=== PATIENT | male | born 1970 | race Caucasian/White ===

== ENCOUNTER 2018-12-15 07:04 | Emergency (ER) | payer MEDICAID, SELFPAY ==
[2018-12-15 07:06] VITALS: BP 139/78; PULSE 82; RESP 12; TEMP 36.9; O2SAT 98
--- NOTE | 2018-12-15 07:17 | W.ED.GENAD ---
Medical Decision Making <Mukesh Loomis DO - Last Filed: 12/15/18 14:52> This is a 48-year-old male with past medical history of surgery on his left ankle years ago for an injury, his chronic pain during the winter in his left ankle, he states this his pain is gotten slightly worse over the last few weeks, but he felt a change just today when he was dorsiflexing his foot. He came in for further evaluation. He denies any redness, fever or chills. He denies any significant trauma or hearing any loud pops. Physical exam demonstrates a benign-appearing ankle, no significant reproducible tenderness, patient is able to bear weight without significant difficulty. I suspect the patient has notable chronic arthritis secondary to the surgery, recommend continue Tylenol and Motrin on an outpatient basis. We will get an x-ray to rule out acute fracture. We will Place Lidoderm patch, and recommend follow-up with the orthopedic surgeon that did the surgery. We are pending x-ray results the case will be signed out to my colleague Dr. Louise. <Ally Louise MD - Last Filed: 12/15/18 13:35> Lance Eldridge is a 48-year-old man who presented to the emergency department with ankle pain and was initially seen by Dr. Loomis. Patient was signed out to me at time of shift change with ankle x-rays pending. I personally visualized and interpreted the x-ray in conjunction with radiology: LEFT ANKLE: Comparison is made with 12/06/11. There is again noted to be a screw and plate through the distal tibia and fibula. There is now a fracture of the screw within the tibial portion. There is also new lucency surrounding the screw,. likely reflecting loosening. No bony fractures are identified. There are degenerative changes at the anterior tibia. An os trigonum is incidentally noted. IMPRESSION: Fracture of the mortise screw. Abnormal lucency surrounding the screw likely representing loosening. I discussed patient presentation results with Dr. King of orthopedic surgery who was on-call, who recommended patient be discharged home in a walking boot with outpatient follow-up with orthopedics. Patient was placed on the Ortho list for follow-up. I had a lengthy discussion with the patient regarding return to emergency department precautions, and importance of outpatient follow-up with orthopedics. Patient verbalized understanding the plan and is amenable. HPI <Mukesh Loomis DO - Last Filed: 12/15/18 14:52> General Date/Time Provider Initiated Documentation: 12/15/18 07:10. HPI Narrative: This is a very pleasant 48-year-old male with past medical history of left ankle surgery secondary to an injury, with subsequent pins, who presents today for left ankle pain. He states that the ankle has been hurting him for the last few weeks, it is worse with the cold weather and movement. He states that this is pretty classic for him during the winter, however this morning when he got up he felt that there was an acute change in the left lateral aspect of his ankle. It occurred on dorsiflexion. He does admit to hearing some cracking regularly, but denies hearing any significant pop. He denies any numbness tingling or weakness. He denies any other complaints or modifying factors. He denies any redness, fever, chills, or warmth. No other complaints at this time. Related Data Home Medications Medication Instructions Recorded Confirmed bupropion HCl [Wellbutrin XL] 300 mg PO DAILY tab-cap 01/10/17 12/15/18 ranitidine HCl 300 mg PO HS #60 tab-cap 03/29/17 12/15/18 omeprazole 20 mg PO DAILY 03/01/18 12/15/18 lidocaine [Lidoderm] 1 patch TOPICAL Q24H #4 patch 12/15/18 Previous Rx's Medication Instructions Recorded lidocaine [Lidoderm] 1 patch TOPICAL Q24H #4 patch 12/15/18 Allergies Allergy/AdvReac Type Severity Reaction Status Date / Time No Known Allergies Allergy Unverified 12/15/18 07:10 General Stated Complaint: Orthopedic RONY: 4 Review of Systems <Mukesh Loomis DO - Last Filed: 12/15/18 14:52> Review of Systems All systems reviewed & are unremarkable except as noted in HPI and below PFSH <DO Ashley Lomax Last Filed: 12/15/18 14:52> Surgical History EGD - IV Sedation (01/22/17) Social History Smoking/Tobacco Use Status: Former Tobacco Use Drug use: Never Do you feel safe at home: Yes Do you feel safe in your relationship?: Yes Exam <Mukesh Loomis DO - Last Filed: 12/15/18 14:52> Narrative Exam Narrative: 1.Const: Well-nourished, Well-developed, appearing stated age 2.Eyes: PERRL, no conjunctival injection, and symmetrical lids. 3.ENT: Atraumatic external nose and ears. Moist MM. Neck: Symmetric, trachea midline, No thyromegaly. 4.CVS: +S1/S2, No murmurs or gallops. Peripheral pulses 2+ and equal in all extremities. Brisk capillary refill in all extremities. 5.RESP: Unlabored respiratory effort. Clear to auscultation bilaterally. No wheezes rales or rhonchi 6.GI: Soft, Nontender/Nondistended, No hepatosplenomegaly. No guarding or rebound. 7.MSK: Normocephalic/Atraumatic, Extremities w/o deformity or ttp No cyanosis or clubbing, Normal movement of all extremities. No significant deformity of the left ankle, no severe crepitus with movement. No redness, erythema or warmth. Subjective pain is located on the lateral aspect of the malleolus towards the calcaneus. However no significant reproducible tenderness. Patient is able to bear weight. No other significant abnormalities. 8.Skin: Warm, Dry. No rashes or lesions. 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 Sensation grossly intact, no focal neurologic deficits. 10.Psych: (AAO) x3. Appropriate mood and affect Course <Mukesh Csome Ebonie DO - Last Filed: 12/15/18 14:52> Vital Signs Temperature 36.9 C 12/15/18 07:06 Pulse 82 12/15/18 07:06 Respiratory Rate 12 12/15/18 07:06 Blood Pressure 139/78 12/15/18 07:06 Pulse Oximetry 98 12/15/18 07:06 Temperature 36.9 C 12/15/18 07:06 Temperature Source Temporal Artery Scan 12/15/18 07:06 Pulse 82 12/15/18 07:06 Respiratory Rate 12 12/15/18 07:06 Respiratory Effort Non-Labored 12/15/18 07:11 Blood Pressure 139/78 12/15/18 07:06 Blood Pressure Position Sitting 12/15/18 07:06 Pulse Oximetry 98 12/15/18 07:06 Oxygen Delivery Method Room Air 12/15/18 07:06 Oxygen Flow Rate 0 12/15/18 07:06 Pain Level 8 12/15/18 07:12 Sign Out <Mukesh Loomis DO - Last Filed: 12/15/18 14:52> Sign Out Data: Sign Out Comment: Pending x-ray results, likely to discharge home pending negative x-ray Last updated by Mukesh Loomis DO at 12/15/18 07:43
--- NOTE | 2018-12-15 07:26 | ED.GENADUL_ITS ---
Medical Decision Making <Mukesh Loomis DO - Last Filed: 12/15/18 14:52> This is a 48-year-old male with past medical history of surgery on his left ankle years ago for an injury, his chronic pain during the winter in his left ankle, he states this his pain is gotten slightly worse over the last few weeks, but he felt a change just today when he was dorsiflexing his foot. He came in for further evaluation. He denies any redness, fever or chills. He denies any significant trauma or hearing any loud pops. Physical exam demonstrates a benign-appearing ankle, no significant reproducible tenderness, patient is able to bear weight without significant difficulty. I suspect the patient has notable chronic arthritis secondary to the surgery, recommend continue Tylenol and Motrin on an outpatient basis. We will get an x-ray to rule out acute fracture. We will Place Lidoderm patch, and recommend follow-up with the orthopedic surgeon that did the surgery. We are pending x-ray results the case will be signed out to my colleague Dr. Louise. <Ally Louise MD - Last Filed: 12/15/18 13:35> Lance Eldridge is a 48-year-old man who presented to the emergency department with ankle pain and was initially seen by Dr. Loomis. Patient was signed out to me at time of shift change with ankle x-rays pending. I personally visualized and interpreted the x-ray in conjunction with radiology: LEFT ANKLE: Comparison is made with 12/06/11. There is again noted to be a screw and plate through the distal tibia and fibula. There is now a fracture of the screw within the tibial portion. There is also new lucency surrounding the screw,. likely reflecting loosening. No bony fractures are identified. There are degenerative changes at the anterior tibia. An os trigonum is incidentally noted. IMPRESSION: Fracture of the mortise screw. Abnormal lucency surrounding the screw likely representing loosening. I discussed patient presentation results with Dr. King of orthopedic surgery who was on-call, who recommended patient be discharged home in a walking boot w ith outpatient follow-up with orthopedics. Patient was placed on the Ortho list for follow-up. I had a lengthy discussion with the patient regarding return to emergency department precautions, and importance of outpatient follow-up with orthopedics. Patient verbalized understanding the plan and is amenable. HPI <Mukesh Loomis DO - Last Filed: 12/15/18 14:52> General Date/Time Provider Initiated Documentation: 12/15/18 07:10 . HPI Narrative: This is a very pleasant 48-year-old male with past medical history of left ankle surgery secondary to an injury, with subsequent pins, who presents today for left ankle pain. He states that the ankle has been hurting him for the last few weeks, it is worse with the cold weather and movement. He states that this is pretty classic for him during the winter, however this morning when he got up he felt that there was an acute change in the left lateral aspect of his ankle. It occurred on dorsiflexion. He does admit to hearing some cracking regularly, but denies hearing any significant pop. He denies any numbness tingling or weakness. He denies any other complaints or modifying factors. He denies any redness, fever, chills, or warmth. No other complaints at this time. Related Data Home Medications Medication Instructions Recorded Confirmed bupropion HCl [Wellbutrin XL] 300 mg PO DAILY tab-cap 01/10/17 12/15/18 ranitidine HCl 300 mg PO HS #60 tab-cap 03/29/17 12/15/18 omeprazole 20 mg PO DAILY 03/01/18 12/15/18 lidocaine [Lidoderm] 1 patch TOPICAL Q24H #4 patch 12/15/18 Previous Rx's Medication Instructions Recorded lidocaine [Lidoderm] 1 patch TOPICAL Q24H #4 patch 12/15/18 Allergies Allergy/AdvReac Type Severity Reaction Status Date / Time No Known Allergies Allergy Unverified 12/15/18 07:10 General Stated Complaint: Orthopedic RONY: 4 Review of Systems <Mukesh Loomis DO - Last Filed: 12/15/18 14:52> Review of Systems All systems reviewed & are unremarkable except as noted in HPI and below PFSH <Mukesh Loomis DO - Last Filed: 12/15/18 14:52> Surgical History EGD - IV Sedation (01/22/17) Social History Smoking/Tobacco Use Status: Former Tobacco Use Drug use: Never Do you feel safe at home: Yes Do you feel safe in your relationship?: Yes Exam <Mukesh Loomis DO - Last Filed: 12/15/18 14:52> Narrative Exam Narrative: 1.Const: Well-nourished, Well-developed, appearing stated age 2.Eyes: PERRL, no conjunctival injection, and symmetrical lids. 3.ENT: Atraumatic external nose and ears. Moist MM. Neck: Symmetric, trachea midline, No thyromegaly. 4.CVS: +S1/S2, No murmurs or gallops. Peripheral pulses 2+ and equal in all extremities. Brisk capillary refill in all extremities. 5.RESP: Unlabored respiratory effort. Clear to auscultation bilaterally. No wheezes rales or rhonchi 6.GI: Soft, Nontender/Nondistended, No hepatosplenomegaly. No guarding or rebound. 7.MSK: Normocephalic/Atraumatic, Extremities w/o deformity or ttp No cyanosis or clubbing, Normal movement of all extremities. No significant deformity of the left ankle, no severe crepitus with movement. No redness, erythema or warmth. Subjective pain is located on the lateral aspect of the malleolus towards the calcaneus. However no significant reproducible tenderness. Patient is able to bear weight. No other significant abnormalities. 8.Skin: Warm, Dry. No rashes or lesions. 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 Sensation grossly intact, no focal neurologic deficits. 10.Psych: (AAO) x3. Appropriate mood and affect Course <Mukesh Loomis DO - Last Filed: 12/15/18 14:52> Vital Signs Temperature 36.9 C 12/15/18 07:06 Pulse 82 12/15/18 07:06 Respiratory Rate 12 12/15/18 07:06 Blood Pressure 139/78 12/15/18 07:06 Pulse Oximetry 98 12/15/18 07:06 Temperature 36.9 C 12/15/18 07:06 Temperature Source Temporal Artery Scan 12/15/18 07:06 Pulse 82 12/15/18 07:06 Respiratory Rate 12 12/15/18 07:06 Respiratory Effort Non-Labored 12/15/18 07:11 Blood Pressure 139/78 12/15/18 07:06 Blood Pressure Position Sitting 12/15/18 07:06 Pulse Oximetry 98 12/15/18 07:06 Oxygen Delivery Method Room Air 12/15/18 07:06 Oxygen Flow Rate 0 12/15/18 07:06 Pain Level 8 12/15/18 07:12 Sign Out <Mukesh Loomis DO - Last Filed: 12/15/18 14:52> Sign Out Data: Sign Out Comment: Pending x-ray results, likely to discharge home pending negative x-ray Last updated by Mukesh Loomis DO at 12/15/18 07:43
[2018-12-15] MEDS: Lidocaine 5% Patch 1 PATCH TP (07:32)
== END 2018-12-15 10:25 | disposition home or self-care (01) ==
PROVIDERS: Emergency Provider Student in an Organized Health Care Education/Training Program; PCP Specialist/Technologist Athletic Trainer
DX: M25.572 Pain in left ankle and joints of left foot (principal); G89.29 Other chronic pain; T84.116A Breakdown (mechanical) of internal fixation device of bone of right lower leg, initial encounter
CPT/HCPCS: 29515; 99283; 73610; L4361

== ENCOUNTER 2018-12-31 12:06 | Day surgery (SDC) | payer MEDICAID, SELFPAY ==
[2018-12-31 12:31] VITALS: BP 131/85; PULSE 82; RESP 18; TEMP 36.5; O2SAT 97
[2018-12-31 12:44] VITALS: BP 131/85; PULSE 82; RESP 18; TEMP 36.5; O2SAT 97
--- NOTE | 2018-12-31 13:33 | DI.RAD_ITS ---
SYMPTOMS/DIAGNOSIS: REMOVAL OF BROKEN LEFT SCREW LEFT FOOT IN THE OR: Fluoroscopy Time: 3.8 sec Fluoroscopy was utilized by Dr. King during the removal of a broken screw in the left ankle. Please refer to the procedure report for complete details.
--- NOTE | 2018-12-31 14:55 | W.PM.DSUDISC ---
Discharge Plan Disposition Patient Disposition: HOME Condition: Good Discharge Details Reason For Visit: Remove broken screw L ankle Attending Provider: Tyron King Primary Care Provider: Cristhian Hubbard Home Meds and New Rx's Prescriptions: Continued bupropion HCl [Wellbutrin XL] 150 MG tablet extended release 24 hr 300 mg PO DAILY RF: 0 ranitidine HCl 300 MG capsule 300 mg PO HS Qty: 60 RF: 0 omeprazole 20 MG tablet,delayed release (DR/EC) 40 mg PO DAILY RF: 0 lidocaine [Lidoderm] 1 PATCH patch 1 patch Topical Q24H Qty: 4 RF: 0 Vicks NyQuil Severe Cold-Flu 6.25-5-10-325 mg Tablet 1 tab PO PRN PRNRF: 0 Discharge Instructions Additional Instructions: Elevate L ankle if L foot swells. Walk and put as much weight on L foot as your discomfort allows. May remove dressings, shower, and get incision wet after 48 hours. Leave incision uncovered when it is dry and sealed. Follow up with in 2 weeks. Take ibuprofen 800 mg every 6 hours, if needed for pain. Activity:: Activity as Tolerated Remove Dressings/Wound Care:: 48 hours Shower/Bathe:: 48 hours Diet:: As Tolerated Discharge Orders Discharge Orders: Discharge Order (Routine); Ordered 12/31/18 Ordered By: Tyron King DS: Diagnosis Discharge Diagnosis (1) Painful orthopaedic hardware: Status: Chronic
--- NOTE | 2019-01-01 07:30 | ROE_ITS ---
REPORT OF OPERATIVE PROCEDURE DATE OF PROCEDURE December 31, 2018 PREOPERATIVE DIAGNOSIS Painful broken syndesmotic screw, left ankle. POSTOPERATIVE DIAGNOSIS Painful broken syndesmotic screw, left ankle. PROCEDURE Removal of broken screw, left ankle. ANESTHESIA Local infiltration, 1% Xylocaine solution and 0.5% Marcaine with epinephrine solution. SURGEON Tyron King M.D. INDICATIONS This is a 40-year-old white male who had previously had a widened ankle mortise treated with a syndes motic screw over three years ago. He had had no particular problems until a few months ago when he no anand the sudden onset of pain around his left ankle. X-rays revealed that the syndesmotic screw had br oken within the confines of the distal tibia. In addition, there was evidence that the screw had been loose due to re-absorption of bone around the screw. Removal of the broken portion of the screw was recommended. I explained to the patient that I would not have to remove the medial portion of the scr ew that was well encased in the tibia. The risks and complications of the procedure were explained to the patient in detail preoperatively. DESCRIPTION OF PROCEDURE The patient was taken to the Operating Room on 12/31/2018. He was placed supine on the operating tabl e. The left foot and ankle were prepped and draped free and usual sterile fashion. The left ankle was elevated on soft goods. With the help of C-arm image intensification, I was able t o localize the screw on the distal fibula. I then made an incision longitudinal, incorporating some o f the previous scar down to bone. The screw head was not visible, it was covered with bone and soft t issue. I proceeded to use dental pic curettes and a small rongeur to expose the screw head. The screw head was obviously loose in the fibula. It was a large fragment screw, and I backed it out with the Hex screwdriver. I then irrigated the screw hole and the small incision with Betadine saline solutio n. The skin had been anesthetized with 1% Xylocaine solution down to periosteum and at the conclusion of the procedure, I infiltrated the wound edges including the periosteum of the fibula with 0.5% Mar alice with epinephrine solution. The skin edges were approximated with a few interrupted #4-0 Nylon s utures. The wound was dressed with Xeroform gauze, sterile gauze 4x4s, and wrapped with a 3-inch Adryan bandage. The patient tolerated the procedure well. He was discharged from the Day Surgery Unit in good conditi on. The patient was given instructions on discharge to be weightbearing as tolerated to the left foot. He is told to elevate his foot whenever it is sore or if the foot swells. He may remove his dressing, s hower and get his incision wet after 48 hours. He can leave the incision uncovered when it is dry and sealed. He should followup with Dr. King in two weeks.
== END 2018-12-31 15:32 | disposition home or self-care (01) ==
PROVIDERS: PCP Specialist/Technologist Athletic Trainer; Visit Provider Orthopaedic Surgery
PROC: (CPT 20680; principal; 2018-12-31 14:00)
DX: T84.84XA Pain due to internal orthopedic prosthetic devices, implants and grafts, initial encounter (principal); M25.572 Pain in left ankle and joints of left foot
CPT/HCPCS: 20680; 73620

== ENCOUNTER 2019-03-06 22:12 | Emergency (ER) | payer MEDICAID, SELFPAY ==
[2019-03-06 22:16] VITALS: BP 152/99; PULSE 87; RESP 18; TEMP 36.5; O2SAT 95
--- NOTE | 2019-03-06 22:26 | W.ED.GENAD ---
Discharge Plan Disposition Patient Disposition: HOME Condition: Improving Discharge Details Chief Complaint: DentalOral Clinical Impression: Odontalgia Primary Care Provider: Cristhian Hubbard ED Provider: Tyron Navarro Home Meds and New Rx's Prescriptions: New penicillin V potassium 500 mg tablet 500 mg PO TID 10 Days Qty: 30 RF: 0 Continued meloxicam [Mobic] 15 mg tablet 15 mg PO DAILY RF: 0 bupropion HCl [Wellbutrin XL] 150 MG tablet extended release 24 hr 300 mg PO DAILY RF: 0 ranitidine HCl 300 MG capsule 300 mg PO HS Qty: 60 RF: 0 omeprazole 20 MG tablet,delayed release (DR/EC) 40 mg PO DAILY RF: 0 lidocaine [Lidoderm] 1 PATCH patch 1 patch Topical Q24H Qty: 4 RF: 0 Discharge Instructions Instructions: Toothache (ED) Additional Instructions: Follow-up with dentistry on Saturday as planned. Warm, salt water gargles to aid in speed of healing. Take penicillin as prescribed. Continue ibuprofen 600 to 800 mg every 8 hours, with food for pain. May also use Tylenol 650 to 975 mg every 6 hours. May use the provided hydrocodone if needed for severe pain at bedtime. This does contain Tylenol it should not be used with additional Tylenol. Medical Decision Making 49-year-old male with generally poor dentition, multiple previous extractions, now with numerous dental caries and right maxillary odontalgia and developing apical infection. He has pre-standing follow-up with dentistry for Saturday. I will place him on a course of penicillin. He declined regional anesthesia, he will be given 2 Vicodin for home use for severe pain. He is stable and appropriate for discharge with follow-up with dentistry as planned HPI General Mode of arrival: ambulatory. Date/Time Provider Initiated Documentation: 03/06/19 22:12. Limitations to Documentation: no limitations. Information obtained by: patient. History of Present Illness 49 year old M presents to the emergency department with the chief complaint of Dental pain, right upper, described as moderate, Quality is described as aching, dull and constant, and is localized to the face. Patient reports no radiation. Patient started experiencing this day(s) and it has been constant. No relieving factors improve symptom(s), No exacerbating factors reported . Patient notes denies fever/chills. Patient did receive the following treatments prior to arrival, NSAID Related Data Home Medications Medication Instructions Recorded Confirmed bupropion HCl [Wellbutrin XL] 300 mg PO DAILY tab-cap 01/10/17 03/06/19 ranitidine HCl 300 mg PO HS #60 tab-cap 03/29/17 03/06/19 omeprazole 40 mg PO DAILY 03/01/18 03/06/19 lidocaine [Lidoderm] 1 patch TOPICAL Q24H #4 patch 12/15/18 03/06/19 meloxicam 15 mg tablet 15 mg PO DAILY 01/14/19 03/06/19 penicillin V potassium 500 mg PO TID 10 Days #30 tab 03/06/19 Previous Rx's Medication Instructions Recorded lidocaine [Lidoderm] 1 patch TOPICAL Q24H #4 patch 12/15/18 penicillin V potassium 500 mg PO TID 10 Days #30 tab 03/06/19 Allergies Allergy/AdvReac Type Severity Reaction Status Date / Time No Known Allergies Allergy Unverified 03/06/19 22:18 General Stated Complaint: DentalOral RONY: 4 Review of Systems Review of Systems No drooling, no change to voice. Mild right face swelling. Eating and drinking normally. Follow-up with dentistry on Saturday. 6 systems reviewed and otherwise neg [facility] Surgical History EGD - IV Sedation (01/22/17) Social History Smoking/Tobacco Use Status: Current-Occasional Tobacco Type: cigarettes Alcohol Intake: current Alcohol Intake frequency: holidays/special occasions only Drug use: Never Do you feel safe at home: Yes Do you feel safe in your relationship?: Yes Exam Narrative Exam Narrative: GEN: awake, alert, oriented 3. Pleasant, well groomed, interactive. HEAD: Normocephalic, atraumatic ENT: Mucous membranes moist, oropharynx with numerous dental caries and partially edentulous. Tender right maxillary with no fluctuance EYES: PERRL, EOMI NECK: Full ROM, no BAYLEE, no menigismus CHEST/RESP: Nontender, clear to auscultation bilateral, no wheeze/rhonchi/rales CARDIOVASCULAR: RRR, no murmur, rub qamar. 2+ Rad pulse bilateral Neuro: Grossly normal neurologic exam, conversant, interactive. Psych: Speech fluent, thoughts congruent, affect normal Course Vital Signs Temperature 36.5 C 03/06/19 22:16 Pulse 87 03/06/19 22:16 Respiratory Rate 18 03/06/19 22:16 Blood Pressure 152/99 H 03/06/19 22:16 Pulse Oximetry 95 03/06/19 22:16 Temperature 36.5 C 03/06/19 22:16 Temperature Source Skin 03/06/19 22:16 Pulse 87 03/06/19 22:16 Respiratory Rate 18 03/06/19 22:16 Respiratory Effort Non-Labored 03/06/19 22:18 Blood Pressure 152/99 H 03/06/19 22:16 Blood Pressure Position Sitting 03/06/19 22:16 Pulse Oximetry 95 03/06/19 22:16 Oxygen Delivery Method Room Air 03/06/19 22:16 Oxygen Flow Rate 0 03/06/19 22:16 Pain Level 9 03/06/19 22:20
--- NOTE | 2019-03-06 22:29 | ED.GENADUL_ITS ---
Discharge Plan Disposition Patient Disposition: HOME Condition: Improving Discharge Details Chief Complaint: DentalOral Clinical Impression: Odontalgia Primary Care Provider: Cristhian Hubbard ED Provider: Tyron Navarro Home Meds and New Rx's Prescriptions: New penicillin V potassium 500 mg tablet 500 mg PO TID 10 Days Qty: 30 RF: 0 Continued meloxicam [Mobic] 15 mg tablet 15 mg PO DAILY RF: 0 bupropion HCl [Wellbutrin XL] 150 MG tablet extended release 24 hr 300 mg PO DAILY RF: 0 ranitidine HCl 300 MG capsule 300 mg PO HS Qty: 60 RF: 0 omeprazole 20 MG tablet,delayed release (DR/EC) 40 mg PO DAILY RF: 0 lidocaine [Lidoderm] 1 PATCH patch 1 patch Topical Q24H Qty: 4 RF: 0 Discharge Instructions Instructions: Toothache (ED) Additional Instructions: Follow-up with dentistry on Saturday as planned. Warm, salt water gargles to aid in speed of healing. Take penicillin as prescribed. Continue ibuprofen 600 to 800 mg every 8 hours, with food for pain. May also use Tylenol 650 to 975 mg every 6 hours. May use the provided hydrocodone if needed for severe pain at bedtime. This does contain Tylenol it should not be used with additional Tylenol. Medical Decision Making 49-year-old male with generally poor dentition, multiple previous extractions, now with numerous dental caries and right maxillary odontalgia and developing apical infection. He has pre-standing follow-up with dentistry for Saturday. I will place him on a course of penicillin. He declined regional anesthesia, he will be given 2 Vicodin for home use for severe pain. He is stable and appropriate for discharge with follow-up with dentistry as planned HPI General Mode of arrival: ambulatory . Date/Time Provider Initiated Documentation: 03/06/19 22:12 . Limitations to Documentation: no limitations . Information obtained by: patient . History of Present Illness 49 year old M presents to the emergency department with the chief complaint of Dental pain, right upper, described as moderate, Quality is described as aching, dull and constant, and is localized to the face. Patient reports no radiation. Patient started experiencing this day(s) and it has been constant. No relieving factors improve symptom(s), No exacerbating factors reported . Patient notes denies fever/chills. Patient did receive the following treatments prior to arrival, NSAID Related Data Home Medications Medication Instructions Recorded Confirmed bupropion HCl [Wellbutrin XL] 300 mg PO DAILY tab-cap 01/10/17 03/06/19 ranitidine HCl 300 mg PO HS #60 tab-cap 03/29/17 03/06/19 omeprazole 40 mg PO DAILY 03/01/18 03/06/19 lidocaine [Lidoderm] 1 patch TOPICAL Q24H #4 patch 12/15/18 03/06/19 meloxicam 15 mg tablet 15 mg PO DAILY 01/14/19 03/06/19 penicillin V potassium 500 mg PO TID 10 Days #30 tab 03/06/19 Previous Rx's Medication Instructions Recorded lidocaine [Lidoderm] 1 patch TOPICAL Q24H #4 patch 12/15/18 penicillin V potassium 500 mg PO TID 10 Days #30 tab 03/06/19 Allergies Allergy/AdvReac Type Severity Reaction Status Date / Time No Known Allergies Allergy Unverified 03/06/19 22:18 General Stated Complaint: DentalOral RONY: 4 Review of Systems Review of Systems No drooling, no change to voice. Mild right face swelling. Eating and drinking normally. Follow-up with dentistry on Saturday. 6 systems reviewed and otherwise neg [facility] Surgical History EGD - IV Sedation (01/22/17) Social History Smoking/Tobacco Use Status: Current-Occasional Tobacco Type: cigarettes Alcohol Intake: current Alcohol Intake frequency: holidays/special occasions only Drug use: Never Do you feel safe at home: Yes Do you feel safe in your relationship?: Yes Exam Narrative Exam Narrative: GEN: awake, alert, oriented 3. Pleasant, well groomed, interactive. HEAD: Normocephalic, atraumatic ENT: Mucous membranes moist, oropharynx with numerous dental caries and partially edentulous. Tender right maxillary with no fluctuance EYES: PERRL, EOMI NECK: Full ROM, no BAYLEE, no menigismus CHEST/RESP: Nontender, clear to auscultation bilateral, no wheeze/rhonchi/rales CARDIOVASCULAR: RRR, no murmur, rub qamar. 2+ Rad pulse bilateral Neuro: Grossly normal neurologic exam, conversant, interactive. Psych: Speech fluent, thoughts congruent, affect normal Course Vital Signs Temperature 36.5 C 03/06/19 22:16 Pulse 87 03/06/19 22:16 Respiratory Rate 18 03/06/19 22:16 Blood Pressure 152/99 H 03/06/19 22:16 Pulse Oximetry 95 03/06/19 22:16 Temperature 36.5 C 03/06/19 22:16 Temperature Source Skin 03/06/19 22:16 Pulse 87 03/06/19 22:16 Respiratory Rate 18 03/06/19 22:16 Respiratory Effort Non-Labored 03/06/19 22:18 Blood Pressure 152/99 H 03/06/19 22:16 Blood Pressure Position Sitting 03/06/19 22:16 Pulse Oximetry 95 03/06/19 22:16 Oxygen Delivery Method Room Air 03/06/19 22:16 Oxygen Flow Rate 0 03/06/19 22:16 Pain Level 9 03/06/19 22:20
[2019-03-06] MEDS: HYDROcodone 5/Acetaminophen 325 TAB PO (22:35)
[2019-03-06] MEDS: Penicillin V POTASSIUM 500 MG TAB PO (22:35)
== END 2019-03-06 22:38 | disposition home or self-care (01) ==
PROVIDERS: Emergency Provider Emergency Medicine; PCP Specialist/Technologist Athletic Trainer
DX: K08.89 Other specified disorders of teeth and supporting structures (principal); K02.9 Dental caries, unspecified
CPT/HCPCS: 99283

== ENCOUNTER 2019-03-07 06:11 | Emergency (ER) | payer MEDICAID, SELFPAY ==
[2019-03-07 06:14] VITALS: BP 154/94; PULSE 98; RESP 18; TEMP 36.6; O2SAT 96
--- NOTE | 2019-03-07 06:34 | ED.GENADUL_ITS ---
Discharge Plan Disposition Patient Disposition: HOME Discharge Details Chief Complaint: DentalOral Clinical Impression: Dental abscess Primary Care Provider: Cristhian Hubbard ED Provider: Venu Louise Home Meds and New Rx's Prescriptions: New amoxicillin-pot clavulanate [Augmentin] 875-125 mg tablet 1 tab PO BID Qty: 14 RF: 0 Continued meloxicam [Mobic] 15 mg tablet 15 mg PO DAILY RF: 0 bupropion HCl [Wellbutrin XL] 150 MG tablet extended release 24 hr 300 mg PO DAILY RF: 0 ranitidine HCl 300 MG capsule 300 mg PO HS Qty: 60 RF: 0 omeprazole 20 MG tablet,delayed release (DR/EC) 40 mg PO DAILY RF: 0 Discontinued penicillin V potassium 500 mg tablet 500 mg PO TID 10 Days Qty: 30 RF: 0 Discharge Instructions Instructions: Dental Abscess (ED) Additional Instructions: Please contact your primary care physician to arrange follow-up. Be sure to discuss smoking cessation Stop taking penicillin. Start taking Augmentin. Please follow-up with your dentist on Saturday. Return to the ER for any worsening or new concerning symptoms. Referrals: Cristhian Hubbard [Primary Care Provider] - Discharge Data Discharge Date/Time-TO BE ENTERED AT DEPARTURE: 03/07/19 09:40 Medical Decision Making <Dusty Mcelroy MD - Last Filed: 03/11/19 22:37> Patient with small gingival abscess that will need to be drained. However, more concerned of deeper abscess given extensive facial swelling. IV established CBC and chemistry sent. IV clindamycin ordered. CT scan of the face ordered. Laboratory studies significant for white count of 14,000. Chemistries are fine. Scan is completed but not read. Care turned over to Dr. Louise. <Venu Louise MD - Last Filed: 03/13/19 10:47> Medical Records 8:00 --care signed out by Dr. Mcelroy - please see his documentation regarding initial ED presentation and course. Plan at dischargeplan for follow-up CT and incise and drain abscess. I spoke with the patient about incision and drainage. Patient provided informed consent. --Small incision made to obvious right incisor periapical abscess. Abscess drained of purulent fluid without complication. 9:20 --CT interpreted by radiology: Periapical lucency in the right maxilla consistent with periapical abscess. There are adjacent inflammatory changes and bubble air. No definite drainable fluid collection. Findings consistent with significant infection. I reviewed results with the patient. Plan to stop PCN and start augmentin. Plan to have patient followup with dentist on Saturday. We discussed return to ED precautions. HPI <Dusty Mcelroy MD - Last Filed: 03/11/19 22:37> General Mode of arrival: ambulatory . Date/Time Provider Initiated Documentation: 03/07/19 06:31 . Limitations to Documentation: no limitations . Information obtained by: patient and old records reviewed . HPI Narrative: Patient was seen here last night for dental infection. He was started on penicillin. Overnight his face has become extensively swollen on the right side. He has no difficulty swallowing or breathing. He has no fever he is aware of. However, given the significant swelling to the face he came in for reevaluation. Related Data Home Medications Medication Instructions Recorded Confirmed bupropion HCl [Wellbutrin XL] 300 mg PO DAILY tab-cap 01/10/17 03/07/19 ranitidine HCl 300 mg PO HS #60 tab-cap 03/29/17 03/07/19 omeprazole 40 mg PO DAILY 03/01/18 03/07/19 meloxicam 15 mg tablet 15 mg PO DAILY 01/14/19 03/07/19 amoxicillin-pot clavulanate 1 tab PO BID #14 tab 03/07/19 [Augmentin] Previous Rx's Medication Instructions Recorded amoxicillin-pot clavulanate 1 tab PO BID #14 tab 03/07/19 [Augmentin] Allergies Allergy/AdvReac Type Severity Reaction Status Date / Time No Known Allergies Allergy Unverified 03/07/19 06:16 General Stated Complaint: DentalOral RONY: 3 Review of Systems <Dusty Mcelroy MD - Last Filed: 03/11/19 22:37> Review of Systems As documented in HPI otherwise negative as below. Const: no fever, chills, weakness Resp: no cough, SOB, pleuritic pain CV: no CP, diaphoresis, edema, syncope GI: no abdominal pain, nausea, vomiting, diarrhea Neuro: no headache, numbness, focal weakness, confusion PFSH <Dusty Mcelroy MD - Last Filed: 03/11/19 22:37> Medical History Depression (Chronic) GERD (gastroesophageal reflux disease) (Chronic) Surgical History S/P ORIF (open reduction internal fixation) fracture (Inactive) EGD - IV Sedation (Inactive 01/22/17) Social History Smoking/Tobacco Use Status: Current-Occasional Tobacco Type: cigarettes Alcohol Intake: current Alcohol Intake frequency: holidays/special occasions only Drug use: Never Do you feel safe at home: Yes Do you feel safe in your relationship?: Yes Exam <Dusty Mcelroy MD - Last Filed: 03/11/19 22:37> Narrative Exam Narrative: Vitals: Afebrile. Mild tachycardia and elevated blood pressure. Saturations normal. Const: WDWN male in NAD. HEENT: NC/AT. Significant right facial swelling with periorbital edema as well. Significant decay of teeth. Right upper canine completely decayed and broken. Small gingival abscess noted. Eyes: Normal conjunctiva and sclera. Neck: Supple. Trachea midline. Lungs: Normal respiratory effort. Neuro: A+O x 3. CN grossly in tact. Good strength and no focal deficit. Skin: Warm and dry without erythema. Course <Dusty Mcelroy MD - Last Filed: 03/11/19 22:37> Vital Signs Temperature 97.9 F 03/07/19 06:14 Pulse 98 H 03/07/19 06:14 Respiratory Rate 18 03/07/19 06:14 Blood Pressure 154/94 H 03/07/19 06:14 Pulse Oximetry 96 03/07/19 06:14 Temperature 97.9 F 03/07/19 06:14 Temperature Source Skin 03/07/19 06:14 Pulse 98 H 03/07/19 06:14 Respiratory Rate 18 03/07/19 06:14 Respiratory Effort Non-Labored 03/07/19 06:16 Blood Pressure 154/94 H 03/07/19 06:14 Blood Pressure Position Sitting 03/07/19 06:14 Pulse Oximetry 96 03/07/19 06:14 Oxygen Delivery Method Room Air 03/07/19 06:14 Oxygen Flow Rate 0 03/07/19 06:14 Pain Level 10 03/07/19 06:18 <Venu Louise MD - Last Filed: 03/13/19 10:47> Abscess I/D Site: Other (dental) Side (if applicable): Right Sedation/analgesia: None Local Anesthetic: Other Anesthetic (hurricane gel) Technique: Incised with #11 Blade Amount of fluid expressed (mL): 1 Packing used?: None Sign Out <Dusty Mcelroy MD - Last Filed: 03/11/19 22:37> Sign Out Data: Sign Out Comment: Patient pending face CT results; Dr. Louise to I&D abscess Last updated by Dusty Mcelroy MD at 03/07/19 08:29
--- NOTE | 2019-03-07 06:40 | DI.CT_ITS ---
SYMPTOM/DIAGNOSIS: DENTAL INFECTION WITH WORSE FACE SWELLING OVERNIGHT FACIAL CT: Post contrast exam was performed. There is an area of lucency in the right maxilla around the root of a tooth with an adjacent air bubble consistent with a periapical abscess. No additional areas of abscess are seen. The orbits are unremarkable. There is mild mucosal thickening of the right maxillary sinus. IMPRESSION: Extremely poor dentition. A periapical abscess is seen adjacent to the right maxillary bicuspid tooth.
[2019-03-07] MEDS: Ketorolac 15 MG/ML VIAL IVP (06:51)
[2019-03-07] MEDS: Normal Saline 1,000 ML 150 ML IV (06:51)
[2019-03-07 06:56] LABS: Abs Immature Grans 0.04 k/cumm (0.0-0.09); Absolute Lymphocyte Count 1.42 k/cumm (1.2-3.4); Basophils % 0.1; Eosinophils % 1.4; HCT 43.6 % (40.0-50.0); HGB 14.6 g/dL (13.5-17.5); Immature Grans % 0.3; Lymphocytes % 10.1; Mean Corp. HGB Concentration 33.5 g/dL (32.0-36.0); Mean Corpuscular Hemoglobin 30.2 pg (27.0-33.0); Mean Corpuscular Volume 90.1 fL (80-95); Mean Platelet Volume 10.5 fL (8.0-11.0); Monocytes % 7.1; Platelet Count 321 x1000/uL (130-400); RBC 4.84 m/cumm (4.50-6.00); RBC Distribution Width 13.6 % (11.8-14.1); White Blood Cell Count 14.07 k/cumm (4.4-10.8)
[2019-03-07 07:04] LABS: Absolute Basophil Count 0.01 k/cumm (0.0-0.2)
[2019-03-07 07:07] LABS: Anion Gap 7.5 mmol/L (3-11); BUN 21 mg/dL (7-18); CO2 25.5 mmol/L (21.0-32.0); CREATININE 1.11 mg/dL (0.70-1.30); Calcium 8.8 mg/dL (8.5-10.1); Chloride 103 mmol/L (98-107); Glucose 107 mg/dL (70-100); Potassium 3.7 mmol/L (3.5-5.1); Sodium 136 mmol/L (136-145)
[2019-03-07] MEDS: CLINDAMYCIN 600 MG/50 ML BAG 100 MG IVPB (07:13)
[2019-03-07] MEDS: Omnipaque 350 MG/ML 100 ML BTL IJ (07:37)
[2019-03-07] MEDS: Benzocaine 20% Gel 30 GM JAR MM (08:40)
[2019-03-07] MEDS: Amoxicillin 875/Clav. 125 TAB PO (08:44)
--- NOTE | 2019-03-07 09:01 | DI.VRAD_ITS ---
EXAM: CT Maxillofacial With Contrast EXAM DATE/TIME: 03/07/2019 7:39 AM CLINICAL HISTORY: 49 years old, male; Signs and symptoms; Other: Dental infection with worse face swelling overnight TECHNIQUE: Imaging protocol: Axial computed tomography images of the face with intravenous contrast. Coronal and sagittal reformatted images were created and reviewed. Radiation optimization: All CT scans at this facility use at least one of these dose optimization techniques: automated exposure control; mA and/or kV adjustment per patient size (includes targeted exams where dose is matched to clinical indication); or iterative reconstruction. Contrast material: OMNIPAUE 350; Contrast volume: 100 ml; Contrast route: IV; COMPARISON: No relevant prior studies available. FINDINGS: Orbits: No acute intraorbital abnormality. Globes are unremarkable. Sinuses: Mucosal thickening in the right maxillary sinus and ethmoid sinuses and frontal sinuses Bones/joints: No acute fracture. Dental: Periapical lucency in the right maxilla consistent with periapical abscess. There are adjacent inflammatory changes and bubble of air (2:144-153.). No definite drainable fluid collection. Findings consistent with significant infection. Soft tissues: Significant soft tissue swelling and inflammatory changes adjacent to the right maxilla IMPRESSION: Periapical lucency in the right maxilla consistent with periapical abscess. There are adjacent inflammatory changes and bubble of air (2:144-153.). No definite drainable fluid collection. Findings consistent with significant infection. Dictated and Authenticated by: Mal Gordon MD. Ordering:MUKUL Montano MD
[2019-03-07 09:37] VITALS: BP 129/80; PULSE 65; RESP 15; TEMP 36.4; O2SAT 98
[2019-03-07 09:40] VITALS: BP 129/80; PULSE 65; RESP 15; TEMP 36.4; O2SAT 98
== END 2019-03-07 09:40 | disposition home or self-care (01) ==
PROVIDERS: Emergency Medicine; Emergency Provider Student in an Organized Health Care Education/Training Program; PCP Specialist/Technologist Athletic Trainer
DX: K04.7 Periapical abscess without sinus (principal)
CPT/HCPCS: 10060; 36415; 80048; 96361; 96365; 96375; 99285; 70487; 85025; 99284; J1885; J3490

== ENCOUNTER 2019-11-20 23:45 | Emergency (ER) | payer MEDICAID, SELFPAY ==
[2019-11-20 23:54] VITALS: BP 154/88; PULSE 62; RESP 16; TEMP 36.7; O2SAT 98
[2019-11-21] VITALS (9 sets, daily range): BP systolic 137–147; BP diastolic 55–77; PULSE 58–82; RESP 12–19; O2SAT 93–97
--- NOTE | 2019-11-21 00:14 | ED.GENADUL_ITS ---
Discharge Plan Disposition Patient Disposition: HOME Condition: Good Discharge Details Chief Complaint: Abd Prob Clinical Impression: Gastroenteritis Primary Care Provider: Cristhian Hubbard ED Provider: Mukesh Loomis Home Meds and New Rx's Prescriptions: No Action bupropion HCl [Wellbutrin XL] 150 MG tablet extended release 24 hr 300 mg PO DAILY RF: 0 omeprazole 20 MG tablet,delayed release (DR/EC) 40 mg PO DAILY RF: 0 Discharge Instructions Instructions: Gastroenteritis (ED) Additional Instructions: At this time your CAT scan shows no significant life threatening concerning abnormalities. You do have notable gastroenteritis. Which is irritation and inflammation of your stomach and small intestines. I suspect this was from the sandwich that you are eating earlier today. Please stick with a bland diet of bread, rice, applesauce, bananas, and avoid any spicy foods or greasy foods. Please take Maalox as needed to help with any return of your symptoms. If you notice any worsening of your symptoms, or any new symptoms such as vomiting, diarrhea, fever, chills, shortness of breath, chest pain, numbness, weakness, or fainting , please return immediately to the emergency department for reevaluation. Please follow up with your primary care provider as soon as possible for reassessment and reevaluation. As always, it was a pleasure participating in your medical care today. Referrals: Cristhian Hubbard [Primary Care Provider] - Medical Decision Making This is a pleasant 49-year-old male who presents with mild epigastric and left mid abdominal pain. Symptoms have been present for the last 6 hours. Symptoms came on relatively suddenly. He denies any tearing or ripping sensation. He denies any chest pain or shortness of breath. No urinary symptoms. He denies history of kidney stones. He denies significant alcohol intake. Physical exam demonstrates mild reproducible epigastric left-sided abdominal tenderness. No evidence of an acute surgical abdomen. No pain at McBurney's point, negative Escudero sign. Differential is broad but includes mild pancreatitis, gastritis, less likely biliary colic. Urolithiasis is also on the differential. We will gently rehydrate, treat the patient's pain, CT scan reassess. 2 AM Urinalysis shows no evidence of infection or RBCs. Laboratory work-up notably benign, minimally elevated white count of 12, no significant bandemia, electrolytes normal, lipase normal, troponin and EKG unremarkable. Symptoms inconsistent with ACS. After Toradol and GI cocktail patient had complete resolution of his symptoms. CT scan shows no evidence of stone, obstruction, gallbladder pathology or appendicitis. No vascular abnormality. CT scan does show evidence of notable gastroenteritis though. Upon discussion of the patient's findings, he then brought up that he had a notably foul tasting sandw ich that he ate earlier today which she feels is likely the initial cause and onset of his symptoms. I feel that this correlates well with his symptomatology. Signs and symptoms at this time consistent with mild gastroenteritis. Patient able to tolerate p.o. well. Patient will be discharged home with close follow-up. Discussed red flags which to return, including the importance of a brat diet, Maalox as needed. I have extensively reviewed the treatment plan and discharge instructions with the patient and their family. I have addressed all patient concerns at this time. The patient and family was made aware of what symptoms to monitor for that would warrant a return to the emergency department. Discussed the plan with the patient and family, they demonstrate verbal understanding and agreement with our assessment and plan at this time. EKG 00: 38 Rate 52, intervals normal, sinus bradycardia, inverted T wave in V1, no significant ST elevations or depression, no evidence of STEMI. No evidence of Q waves. Questionable RBBB FINDINGS: Liver: Normal. No mass. Gallbladder and bile ducts: Normal. No calcified stones. No ductal dilation. Pancreas: Normal. No ductal dilation. Spleen: Normal. No splenomegaly. Adrenals: Normal. No mass. Kidneys and ureters: No hydronephrosis. No renal calculi. Renal enhancement is unremarkable bilaterally. No inflammatory renal features. Stomach and bowel: Minor dilatation of the duodenal sweep. Mild gastric edema. This could represent a gastroenteritis. No mechanical bowel obstruction. No colonic edema. Minor hiatal hernia. Appendix: No evidence of appendicitis. Normal appendix is seen on series 4, image 74. Intraperitoneal space: Unremarkable. No free air. No significant fluid collection. Vasculature: Unremarkable. No abdominal aortic aneurysm. Lymph nodes: Unremarkable. No enlarged lymph nodes. Bladder: Unremarkable as visualized. Reproductive: Unremarkable as visualized. Bones/joints: Unremarkable. No acute fracture. Soft tissues: Minor fat containing umbilical hernia without evidence of strangulation.. IMPRESSION: 1. Features suggesting gastroenteritis. 2. No renal calculi or hydronephrosis. 3. Normal appendix. Thank you for allowing us to participate in the care of your patient. Dictated and Authenticated by: Oscar Mendez MD 11/21/2019 2:01 AM Eastern Time ([place] & [place]) HPI General Date/Time Provider Initiated Documentation: 11/20/19 23:49 . HPI Narrative: This is a pleasant 49-year-old male who presents today for evaluation of abdominal pain. Past medical history is positive for GERD, but no other significant prior abdominal surgeries. Patient states that at 6:30 PM which was roughly 6 hours prior to arrival he developed left-sided epigastric and left mid abdominal pain. He has had no associated vomiting or diarrhea. He has eaten without significant difficulty. Pain radiates down his left flank. He denies any urinary symptoms. He denies any numbness tingling or weakness. He denies chest pain, chest tightness, shortness of breath, bandlike sensation around the chest. He denies any previous cardiac history. Patient has no other complaints at this time. No aggravating or relieving factors. Related Data Home Medications Medication Instructions Recorded Confirmed bupropion HCl [Wellbutrin XL] 300 mg PO DAILY tab-cap 01/10/17 11/21/19 omeprazole 40 mg PO DAILY 03/01/18 11/21/19 Allergies Allergy/AdvReac Type Severity Reaction Status Date / Time No Known Allergies Allergy Unverified 03/07/19 06:16 General Stated Complaint: Abd Prob RONY: 3 Review of Systems All systems reviewed & are unremarkable except as noted in HPI and below [facility] Social History Smoking/Tobacco Use Status: Former Tobacco Use Alcohol Intake: current Alcohol Intake frequency: holidays/special occasions only Drug use: Never Do you feel safe at home: Yes Do you feel safe in your relationship?: Yes Exam Narrative Exam Narrative: 1.Const: Well-nourished, Well-developed, appearing stated age 2.Eyes: PERRL, no conjunctival injection, and symmetrical lids. 3.ENT: Atraumatic external nose and ears. Moist MM. Neck: Symmetric, trachea midline, No thyromegaly. 4.CVS: +S1/S2, No murmurs or gallops. Peripheral pulses 2+ and equal in all extremities. Brisk capillary refill in all extremities. 5.RESP: Unlabored respiratory effort. Clear to auscultation bilaterally. No wheezes rales or rhonchi 6.GI: Soft,Nondistended, No hepatosplenomegaly. No guarding or rebound. Minimal pain in the epigastric left upper quadrant left mid quadrant. No guarding or rebound. No pain at McBurney's point, negative Escudero sign. No reproducible flank or CVA tenderness. Genital exam demonstrates nontender testicles, no evidence of testicular torsion. Abdominal exam demonstrates no evidence of an acute surgical abdomen. 7.MSK: Normocephalic/Atraumatic, Extremities w/o deformity or ttp No cyanosis or clubbing, Normal movement of all extremities 8.Skin: Warm, Dry. No rashes or lesions. 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 Sensation grossly intact, no focal neurologic deficits. 10.Psych: (AAO) x3. Appropriate mood and affect Course Vital Signs Vital signs: Vital Signs Temperature 36.7 C 11/20/19 23:54 Pulse 62 11/20/19 23:54 Respiratory Rate 16 11/20/19 23:54 Blood Pressure 154/88 H 11/20/19 23:54 Pulse Oximetry 98 11/20/19 23:54 Temperature 36.7 C 11/20/19 23:54 Pulse 62 11/20/19 23:54 Respiratory Rate 16 11/20/19 23:54 Respiratory Effort 11/20/19 23:54 Blood Pressure 154/88 H 11/20/19 23:54 Pulse Oximetry 98 11/20/19 23:54 Oxygen Delivery Method Room Air 11/20/19 23:54 Oxygen Flow Rate 0 11/20/19 23:54 Pain Level 9 11/20/19 23:54
[2019-11-21 00:38] LABS: Bilirubin Negative (Negative); Blood Negative (Negative); Clarity Clear (Clear); Glucose Negative (Negative); Ketones Negative (Negative); Leukocyte Esterase Negative (Negative); Nitrite Negative (Negative); Specific Gravity >= 1.030 (1.005-1.025); Urobilinogen 0.2 EU/dL (Up TO 0.2)
[2019-11-21 00:51] LABS: Abs Immature Grans 0.03 k/cumm (0.0-0.09); Absolute Basophil Count 0.03 k/cumm (0.0-0.2); Absolute Eosinophil Count 0.15 k/cumm (0.0-0.7); Absolute Lymphocyte Count 1.87 k/cumm (1.2-3.4); Absolute Monocyte Count 0.77 k/cumm (0.11-0.7); Basophils % 0.2; Eosinophils % 1.2; HCT 40.6 % (40.0-50.0); HGB 13.8 g/dL (13.5-17.5); Immature Grans % 0.2 %; Lactate 1.3 mmol/L (0.6-1.4); Lymphocytes % 14.8; Mean Corpuscular Hemoglobin 30.5 pg (27.0-33.0); Mean Corpuscular Volume 89.6 fL (80-95); Mean Platelet Volume 9.9 fL (8.0-11.0); Monocytes % 6.1; Neutrophils % 77.5; Platelet Count 350 x1000/uL (130-400); RBC 4.53 m/cumm (4.50-6.00); RBC Distribution Width 13.1 % (11.8-14.1); White Blood Cell Count 12.64 k/cumm (4.4-10.8)
[2019-11-21] MEDS: Normal Saline 1,000 ML 1000 ML IV (00:51)
[2019-11-21] MEDS: Ketorolac 15 MG/ML VIAL IVP (00:52)
[2019-11-21 01:09] LABS: ALT 37 U/L (16-63); AST 21 U/L (15-37); Albumin 3.7 g/dL (3.4-5.0); Alkaline Phosphatase 77 U/L (46-116); Anion Gap 7.4 mmol/L (3-11); BUN 17 mg/dL (7-18); Bilirubin, Total 0.2 mg/dL (0.2-1.0); CO2 26.6 mmol/L (21.0-32.0); CREATININE 1.29 mg/dL (0.70-1.30); Calcium 8.5 mg/dL (8.5-10.1); Chloride 104 mmol/L (98-107); Glucose 132 mg/dL (74-106); Lipase 72 U/L (73-393); Potassium 4.1 mmol/L (3.5-5.1); Sodium 138 mmol/L (136-145); Total Protein 7.1 g/dL (6.4-8.2)
[2019-11-21 01:10] LABS: Troponin I < 0.05 ng/Ml (<0.06)
--- NOTE | 2019-11-21 01:46 | DI.CT_ITS ---
EXAM: CT ABDOMEN AND PELVIS W CLINICAL HISTORY: EPIGASTRIC AND LEFT FLANK PAIN, EVAL FOR STONE TECHNIQUE: Post IV contrast. Without oral contrast. COMPARISON: ABD PELVIS WITH CONTRAST from 06/23/2015 FINDINGS: There is no evidence of hydronephrosis, ureteral or bladder calculi. Tiny renal calculi could be obsc ured by contrast material. There is no evidence of a renal or bladder mass. There is symmetric parenc hymal enhancement. There is no evidence of pyelonephritis. The prostate appears normal. The lung base s are clear. The liver shows mild fatty infiltration. The gallbladder, spleen, pancreas and adrenals are unremarkable. The appendix appears normal. There is a normal quantity of stool. No bowel wall thi ckening or dilatation is seen. There is no free air or free fluid. Aorta is normal in diameter. No cochran spicious bony abnormalities are seen. IMPRESSION: No evidence of urinary tract calculi, hydronephrosis or other acute abnormality.
[2019-11-21] MEDS: Omnipaque 350 MG/ML 100 ML BTL IJ (01:47)
[2019-11-21] MEDS: Normal Saline - Diluent 50 ML VIAL IV (01:48)
--- NOTE | 2019-11-21 02:01 | DI.VRAD_ITS ---
PROCEDURE INFORMATION: Exam: CT Abdomen And Pelvis With Contrast Exam date and time: 11/21/2019 12:09 AM Age: 49 years old Clinical indication: Other: Epigastric and left flank pain, eval for stone TECHNIQUE: Imaging protocol: Computed tomography of the abdomen and pelvis with intravenous contrast. Radiation optimization: All CT scans at this facility use at least one of these dose optimization techniques: automated exposure control; mA and/or kV adjustment per patient size (includes targeted exams where dose is matched to clinical indication); or iterative reconstruction. Contrast material: OMNIPAQUE 350; Contrast volume: 100 ml; Contrast route: IV; COMPARISON: CT ABD PELVIS WITH CONTRAST 06/23/2015 6:09 PM FINDINGS: Liver: Normal. No mass. Gallbladder and bile ducts: Normal. No calcified stones. No ductal dilation. Pancreas: Normal. No ductal dilation. Spleen: Normal. No splenomegaly. Adrenals: Normal. No mass. Kidneys and ureters: No hydronephrosis. No renal calculi. Renal enhancement is unremarkable bilaterally. No inflammatory renal features. Stomach and bowel: Minor dilatation of the duodenal sweep. Mild gastric edema. This could represent a gastroenteritis. No mechanical bowel obstruction. No colonic edema. Minor hiatal hernia. Appendix: No evidence of appendicitis. Normal appendix is seen on series 4, image 74. Intraperitoneal space: Unremarkable. No free air. No significant fluid collection. Vasculature: Unremarkable. No abdominal aortic aneurysm. Lymph nodes: Unremarkable. No enlarged lymph nodes. Bladder: Unremarkable as visualized. Reproductive: Unremarkable as visualized. Bones/joints: Unremarkable. No acute fracture. Soft tissues: Minor fat containing umbilical hernia without evidence of strangulation.. IMPRESSION: 1. Features suggesting gastroenteritis. 2. No renal calculi or hydronephrosis. 3. Normal appendix. Dictated and Authenticated by: Oscar Mendez MD. Ordering:BRENTON Mayorga MD
--- NOTE | 2019-11-21 02:12 | NUR.NOTE ---
Nursing Note: Dr. Loomis in to discuss test results with patient.
== END 2019-11-21 02:30 | disposition home or self-care (01) ==
PROVIDERS: Emergency Provider Student in an Organized Health Care Education/Training Program; PCP Specialist/Technologist Athletic Trainer
DX: K52.9 Noninfective gastroenteritis and colitis, unspecified (principal)
CPT/HCPCS: 80053; 83690; 93005; 96361; 96374; 99285; 74177; 81003; 83605; 84484; 85025; 93010; 99284; J1885; J3490

== ENCOUNTER 2020-04-01 10:28 | Outpatient (REF) | payer MEDICAID, SELFPAY ==
[2020-04-01 19:22] LABS: Calculated LDL 146 mg/dL (<100); Cholesterol 212 mg/dL (<200); HDL Cholesterol 38 mg/dL (40-60); Triglyceride 140 mg/dL (<150)
[2020-04-04 11:19] LABS: PSA, Screening 0.2 ng/mL (0.0-3.5)
== END 2020-04-01 10:48 ==
LOC: NCHCN 10:28
PROVIDERS: PCP Specialist/Technologist Athletic Trainer; Visit Provider Nurse Practitioner Family
DX: Z13.220 Encounter for screening for lipoid disorders (principal); Z12.5 Encounter for screening for malignant neoplasm of prostate
CPT/HCPCS: 80061; 84153

== ENCOUNTER 2020-09-02 03:33 | Outpatient (CLI) | payer MEDICAID, SELFPAY ==
[2020-09-04 16:47] LABS: COVID-19 RT-PCR Result NEGATIVE (Negative)
== END 2020-09-02 03:53 ==
PROVIDERS: PCP Specialist/Technologist Athletic Trainer; Visit Provider Surgery
DX: Z11.59 Encounter for screening for other viral diseases (principal); Z01.818 Encounter for other preprocedural examination
CPT/HCPCS: U0003

== ENCOUNTER 2020-09-06 09:41 | Day surgery (SDC) | payer MEDICAID, SELFPAY ==
[2020-09-06 10:02] VITALS: BP 129/93; PULSE 105; RESP 20; TEMP 36.5; O2SAT 97
[2020-09-06] MEDS: Lactated Ringers 1,000 ML 80 ML IV (10:35)
--- NOTE | 2020-09-06 10:44 | W.PM.DSUDISC ---
Discharge Plan Disposition Patient Disposition: HOME Condition: Good Discharge Details Reason For Visit: Screening Colonoscopy Attending Provider: Torrie Omer Primary Care Provider: Cristhian Hubbard Home Meds and New Rx's Prescriptions: Continued bupropion HCl [Wellbutrin XL] 150 MG tablet extended release 24 hr 300 mg PO DAILY RF: 0 Atrovent HFA 17 mcg/actuation HFA aerosol inhaler 2 puff inhalation Q8H RF: 0 albuterol sulfate [ProAir HFA] 90 mcg/actuation HFA aerosol inhaler 1 puff inhalation ONCE RF: 0 nicotine (polacrilex) [Nicorette] 4 mg lozenge 4 mg buccal Q2H PRNRF: 0 omeprazole 20 MG tablet,delayed release (DR/EC) 40 mg PO DAILY RF: 0 Discontinued polyethylene glycol 3350 17 gram/dose powder 238 g PO ONCE Qty: 238 RF: 0 bisacodyl [Dulcolax (bisacodyl)] 5 mg tablet,delayed release (DR/EC) 5 mg PO ONCE Qty: 4 RF: 0 Discharge Instructions Additional Instructions: Findings: Your colonoscopy was normal. Follow up: Plan for routine screening colonoscopy in 10 years or sooner if symptoms arise. Please call if you develop: fevers >101.5 Nausea or Vomiting Abdominal pain that is not transient DAY SURGERY UNIT POST COLONOSCOPY INSTRUCTIONS 1. Because there will be medication in your system for the next 24 hours, you may feel a little sleepy. Your coordination will be affected. Therefore: a. Do not drive or operate dangerous equipment for 24 hours. b. Do not drink alcohol beverages for 24 hours (not even beer). c. Plan to go home and rest for the day. 2. Generally there are no restrictions on your activity after a day or so has gone by, but you may feel a bit fatigued for a few days. 3 After you arrive home you may have a light meal and return to a normal diet as you can tolerate it without feeling sick to your stomach. 4. After surgery, you may feel pain or discomfort. This should be only transient, but if it persists please contact your doctor. 5. If there are any questions regarding the findings of your procedure, please feel free to contact your doctor. 6. If you are unable to contact your doctor with a problem, contact the hospital at [phone]. 7. Continue all your regular medications unless directed otherwise. I understand the above instructions and have no questions. Signature of Patient or Responsible Adult Escort Date/Time Name of Responsible Adult Escort Signature of Nurse Date/Time Activity:: Activity as Tolerated Diet:: As Tolerated Discharge Orders Discharge Orders: Discharge Order (Routine); Ordered 09/06/20 Ordered By: Torrie Omer DS: Diagnosis Discharge Diagnosis (1) Normal colonoscopy: Status: Acute
--- NOTE | 2020-09-06 10:45 | W.COLOREPORT ---
Date of service: 09/06/20 Time of Service: 11:24 Colonoscopy Report Date of procedure: 09/06/20 Pre-op diagnosis general: Screening Post-op diagnosis procedure note: other (Normal colon) Procedure: Colonoscopy Surgeon: Torrie Omer Anesthesia proc note operative: MAC Indications: This 50 year old man presents for screening colonoscopy. His last one was in the 1980s. No symptoms or FH colon cancer. Procedure Description: The patient was placed in the left Barrera position. Propofol was titrated to sedation. Digital rectal examination revealed no abnormalities. The scope was advanced to the cecum without difficulty. The ileocecal valve and appendiceal orifice were clearly identified. The prep was good. The scope was slowly withdrawn over the course of greater than 6 minutes with no abnormalities seen in the ascending, transverse, descending, sigmoid colon or rectum including on retroflexed view. The patient tolerated the procedure well and was stable to recovery. Plan for routine screening colonoscopy in 10 years or sooner if symptoms indicate.
[2020-09-06 11:57] VITALS: BP 132/76; PULSE 75; RESP 18; TEMP 36.2; O2SAT 96
== END 2020-09-06 12:08 | disposition home or self-care (01) ==
PROVIDERS: PCP Specialist/Technologist Athletic Trainer; Visit Provider Surgery
PROC: 0DJD8ZZ Inspection of Lower Intestinal Tract, Via Natural or Artificial Opening Endoscopic (ICD-10-PCS; CPT 45378; principal; 2020-09-06 11:45)
DX: Z12.11 Encounter for screening for malignant neoplasm of colon (principal)
CPT/HCPCS: 45378

== ENCOUNTER 2021-02-03 16:45 | Outpatient (REF) | payer MEDICAID, SELFPAY ==
[2021-02-03 18:34] LABS: ALT 44 U/L (16-63); AST 19 U/L (15-37); Albumin 3.9 g/dL (3.4-5.0); Alkaline Phosphatase 90 U/L (46-116); Anion Gap 8.4 mmol/L (3-11); BUN 13 mg/dL (7-18); Bilirubin, Total 0.3 mg/dL (0.2-1.0); CO2 25.6 mmol/L (21.0-32.0); CREATININE 1.1 mg/dL (0.70-1.30); Chloride 106 mmol/L (98-107); Glucose 116 mg/dL (74-106); Potassium 4.2 mmol/L (3.5-5.1); Sodium 140 mmol/L (136-145); Total Protein 7.1 g/dL (6.4-8.2)
== END 2021-02-03 16:46 | disposition home or self-care (01) ==
LOC: NCHCN 16:45
PROVIDERS: PCP Nurse Practitioner Family; Visit Provider Nurse Practitioner Family
DX: B35.1 Tinea unguium (principal); M72.2 Plantar fascial fibromatosis; Z51.81 Encounter for therapeutic drug level monitoring
CPT/HCPCS: 80053

== ENCOUNTER → 2022-03-19 02:08 | Outpatient (CLI) | payer MEDICAID, SELFPAY ==
--- NOTE | 2022-03-19 | DI.CTLCSR_ITS ---
Exam(s) CT CHEST LUNG CANCER SCREEN EXAM: CT CHEST LUNG CANCER SCREEN CLINICAL HISTORY: SCREENING FOR LUNG CA, SMOKER, F17.210. TECHNIQUE: Imaging Protocol: Low Dose Technique CONTRAST MATERIAL: None COMPARISON: CT CHEST WITH CONTRAST from 08/10/2010 FINDINGS: CHEST: LUNGS: There is pleural based infiltrate now evident in the posterior basal segment of the right lowe r lobe extending into the medial basal segment, presently benign appearance.. No associated pleural effusion. No other right lung focal findings. There also mild benign-appearing increased markings i n the superior lingular segment of the left lung. No pleural effusions on either side. No significa nt focal findings in the trachea and mainstem bronchi. MEDIASTINUM: There is no obvious hilar nor mediastinal adenopathy. CARDIAC: Heart size is normal. There is no pericardial effusion.Caliber of the thoracic aorta is wit hin normal limits. OTHER: OSSEOUS: No significant osseous lesions.. IMPRESSION: 1. Pleural based benign-appearing infiltrate in the right lower lobe. Also benign-appearing increase d markings in the lingular segment left lung. 2. No pleural effusions nor intrathoracic adenopathy. 3. Lung RADS Cat 3 - Probably Benign: Probably benign finding(s) - short term follow-up suggested; in clude nodules with a low likelihood of becoming a clinically active cancer. Lung-RADS 1.0 CATEGORIES: Category 0 - Prior chest CT exam(s) being located for comparison. Category 1 - Annual screening in 12 months. No nodules or definitely benign nodules. Category 2 - Annual screening in 12 months. Benign appearance. Nodules with low likelihood of becomin g active cancer. Category 3 - 6-month follow-up. Probably benign. Short-term follow-up suggested. Nodules with low lik elihood of becoming active cancer. Category 4A - 3-month follow-up and CT/PET if >8 mm in size. Suspicious finding. Findings which requi re additional testing. Category 4B - Findings which require additional testing and tissue sampling. Category 4X - Category 3 or 4 nodules with additional features or imaging findings that increases the suspicion of malignancy. Modifier S- Potentially clinically significant findings (non lung cancer) RADIATION DOSE DELIVERED: 91.39mGy.cm Total DLP 2.21mGy CTDIvol DATA REPOSITORY: All CT scans at this facility are submitted to the National Radiology Data Registry (NRDR) Dose Index Registry (DIR) with the [employer] ([employer]). RADIATION OPTIMIZATION: All CT scans at this facility use at least one of these dose optimization te chniques: automated exposure control; mA and/or kV adjustment per patient size (includes targeted exa ms where dose is matched to clinical indication); or iterative reconstruction.
== END ==
PROVIDERS: PCP Nurse Practitioner Family; Visit Provider Nurse Practitioner Family
DX: Z12.2 Encounter for screening for malignant neoplasm of respiratory organs (principal); R91.8 Other nonspecific abnormal finding of lung field; F17.210 Nicotine dependence, cigarettes, uncomplicated
CPT/HCPCS: 71271

== ENCOUNTER 2022-11-02 01:01 | Outpatient (CLI) | payer MEDICAID, SELFPAY ==
--- NOTE | 2022-11-02 14:15 | DI.CT_ITS ---
Exam(s) CT CHEST WO EXAM: CT CHEST WO CLINICAL HISTORY: ABNL CHEST CT, R91.8; F/U BIRADS III LUNG CT ON 03/19/22. TECHNIQUE: Imaging protocol: Axial computed tomography images were obtained and coronal and sagittal reformatted images were created and reviewed. COMPARISON: CT CHEST WITH CONTRAST from 08/10/[address] ABDOMEN PELVIS W from 11/21/[address] CHEST LUNG CANCER SCREEN from 03/19/2022 FINDINGS: Tracheobronchial tree: Patent where visualized. Pulmonary parenchyma: The linear infiltrate in the medial aspect of the right lung base has resolved as has the infiltrate in the superior aspect of the lingula. There is a 5 mm perifissural nodule ass ociated with the right minor fissure. This is unchanged dating back to the CT scan from 08/10/2010. This would be consistent with benign nodule. No follow-up is recommended. No suspicious pulmonary nodules are present. No architectural distortion. No focal consolidating infiltrates are present. Mediastinum and Kathie: No dominant adenopathy or fluid collection. The esophagus is unremarkable. Thyroid gland: Unremarkable. Pleura: No effusion or pneumothorax. Heart: The heart is not dilated. No coronary artery calcifications are seen. No pericardial effusion. Aorta: Thoracic aorta non-dilated. Upper abdomen: Unremarkable. Lymph nodes: Within normal limits. Soft tissues: Unremarkable. Bones:Within normal limits for the patient's age. IMPRESSION: 1. No suspicious pulmonary nodules. Resolution of the lingular and right lower lobe infiltrates. 2. No acute pulmonary process. 3. Lung RADS Cat 1 - Negative: No nodules and definitely benign nodules RADIATION DOSE DELIVERED: 872.21mGy.cm Total DLP 872.21mGy.cm Total DLP DATA REPOSITORY: All CT scans at this facility are submitted to the National Radiology Data Registry (NRDR) Dose Index Registry (DIR) with the [employer] (ACR). RADIATION OPTIMIZATION: All CT scans at this facility use at least one of these dose optimization te chniques: automated exposure control; mA and/or kV adjustment per patient size (includes targeted exa ms where dose is matched to clinical indication); or iterative reconstruction.
== END 2022-11-02 01:21 ==
LOC: DI 01:02
PROVIDERS: PCP Nurse Practitioner Family; Visit Provider Nurse Practitioner Family
DX: R91.1 Solitary pulmonary nodule (principal); R91.8 Other nonspecific abnormal finding of lung field
CPT/HCPCS: 71250

== ENCOUNTER 2024-01-31 16:10 | Outpatient (REF) | payer MEDICAID, SELFPAY ==
[2024-01-31 19:00] LABS: Hemoglobin A1C 5.8 % (<5.7)
[2024-01-31 19:26] LABS: BUN 21 mg/dL (7-18); CREATININE 1.3 mg/dL (0.70-1.30); Calcium 9.5 mg/dL (8.5-10.1); Chloride 105 mmol/L (98-107); Estimated GFR 65.69 (mL/min/1.73m2); Glucose 107 mg/dL (74-106); Potassium 4.2 mmol/L (3.5-5.1); Sodium 142 mmol/L (136-145); TSH (W/Ref FT4) 1.17 uIU/mL (0.36-3.74); Vitamin B12 870 pg/mL (193-986)
== END 2024-01-31 16:11 | disposition home or self-care (01) ==
LOC: NCHCN 16:10
PROVIDERS: PCP Nurse Practitioner Family; Visit Provider Nurse Practitioner Family
DX: R20.2 Paresthesia of skin (principal)
CPT/HCPCS: 80048; 82607; 83036; 84443

== ENCOUNTER → 2024-02-21 00:09 | Outpatient (CLI) | payer MEDICAID, SELFPAY ==
--- NOTE | 2024-02-21 | DI.CTLCSR_ITS ---
Exam(s) CT CHEST LUNG CANCER SCREEN EXAM: CT CHEST LUNG CANCER SCREEN CLINICAL HISTORY: SCREENING, Nicotine dependence, F17.210 TECHNIQUE: Imaging Protocol: Axial computed tomography images with coronal and sagittal reformatted images were created and reviewed. Low dose screening protocol. COMPARISON: CT CT CHEST WO from 11/02/2022 FINDINGS: Tracheobronchial tree: No bronchiectasis or mucus plugging. Mediastinum and Kathie: No dominant adenopathy or fluid collection. Pulmonary parenchyma: No consolidation or dominant measurable mass. Mild emphysematous changes. Lung Nodules: None stable benign 5 millimeter nodule so sedated with the right minor fissure. Pleura: No effusion. No pneumothorax. Heart: The heart is not dilated. No coronary artery calcifications are seen. Aorta: Thoracic aorta non-dilated. Upper abdomen: Unremarkable. Bones: Degenerative changes in the spine. Soft Tissues: Unremarkable. IMPRESSION: No suspicious pulmonary nodules. Lung RADS Cat 1 - Negative: No nodules and definitely benign nodules Lung-RADS 1.0 CATEGORIES: Category 0 - Prior chest CT exam(s) being located for comparison. Category 1 - Annual screening in 12 months. No nodules or definitely benign nodules. Category 2 - Annual screening in 12 months. Benign appearance. Nodules with low likelihood of becomin g active cancer. Category 3 - 6-month follow-up. Probably benign. Short-term follow-up suggested. Nodules with low lik elihood of becoming active cancer. Category 4A - 3-month follow-up and CT/PET if >8 mm in size. Suspicious finding. Findings which requi re additional testing. Category 4B - Findings which require additional testing and tissue sampling. Category 4X - Category 3 or 4 nodules with additional features or imaging findings that increases the suspicion of malignancy. Modifier S- Potentially clinically significant findings (non lung cancer) RADIATION DOSE DELIVERED: 77.2mGy.cm Total DLP DATA REPOSITORY: All CT scans at this facility are submitted to the National Radiology Data Registry (NRDR) Dose Index Registry (DIR) with the [employer] (ACR). RADIATION OPTIMIZATION: All CT scans at this facility use at least one of these dose optimization te chniques: automated exposure control; mA and/or kV adjustment per patient size (includes targeted exa ms where dose is matched to clinical indication); or iterative reconstruction.
== END ==
PROVIDERS: PCP Nurse Practitioner Family; Visit Provider Nurse Practitioner Family
DX: Z12.2 Encounter for screening for malignant neoplasm of respiratory organs (principal); F17.210 Nicotine dependence, cigarettes, uncomplicated
CPT/HCPCS: 71271

== ENCOUNTER 2024-03-06 11:06 | Outpatient (CLI) | payer MEDICAID, SELFPAY ==
--- NOTE | 2024-03-06 11:07 | DI.RAD_ITS ---
Exam(s) XR KNEE LT 4V AP,LAT,MICHAEL,PAT EXAM: XR KNEE LT 4V AP,LAT,MICHAEL,PAT CLINICAL HISTORY: LEFT KNEE PAIN. TECHNIQUE: 2D digital imaging was performed. COMPARISON: CR XR KNEE RT 4V AP,LAT,MICHAEL,PAT from 03/06/2024 FINDINGS: Four views. No evidence of fracture. There appears to be a joint effusion. There is moderate-advanced narrowing of the medial compartment and marginal osteophytes off the media l compartment. Lateral compartment exhibits normal height but does exhibit marginal osteophytes. In the patellofemoral compartment there is no significant narrowing but there is on the merchant's vi ew at a corticated calcific density measuring 6 x 6 mm evident in the medial aspect of the patellofem oral compartment. In addition, there is a large osteophytic density measuring 3 by 1 by 1.5 cm locat ed just anterior to the anterior tibial tubercle and most probably within the lower aspect of the pat ellar ligament. Similar findings not seen in the opposite-right knee. IMPRESSION: Degenerative findings as above as well as additional soft tissue calcifications as described above. Joint effusion also noted. DATA REPOSITORY: RADIATION DOSE DELIVERED:
--- NOTE | 2024-03-06 11:08 | DI.RAD_ITS ---
Exam(s) XR KNEE RT 4V AP,LAT,MICHAEL,PAT EXAM: XR KNEE RT 4V AP,LAT,MICHAEL,PAT CLINICAL HISTORY: RIGHT KNEE PAIN. TECHNIQUE: 2D digital imaging was performed. COMPARISON: CR XR KNEE LT 4V AP,LAT,MICHAEL,PAT from 03/06/2024 FINDINGS: Four views. There is no evidence of fracture. Small joint effusion noted. There is moderate narrowing of the me dial compartment. Normal height of the lateral compartment. Small marginal osteophytes are noted of f the medial compartment. The patellofemoral compartment appears unremarkable. IMPRESSION: Moderate degenerative changes in the medial compartment. Small joint effusion noted. DATA REPOSITORY: RADIATION DOSE DELIVERED:
== END 2024-03-06 11:07 | disposition home or self-care (01) ==
LOC: DIORS 11:06
PROVIDERS: PCP Nurse Practitioner Family; Referring Provider Nurse Practitioner Family; Visit Provider Physician Assistant
DX: M25.562 Pain in left knee (principal); M25.561 Pain in right knee
CPT/HCPCS: 73564

== ENCOUNTER 2024-03-28 21:43 | Emergency (ER) | payer MEDICAID, SELFPAY ==
[2024-03-28 21:51] VITALS: BP 135/73; PULSE 79; RESP 15; TEMP 36.7; O2SAT 96
--- NOTE | 2024-03-28 23:12 | ED.GENADUL_ITS ---
Discharge Plan Disposition Patient Disposition: Home Condition: Good Discharge Details Clinical Impression: Sunburn, Pedal edema Primary Care Provider: Danika Giron ED Provider: Dusty Mcelroy Home Meds and New Rx's Prescriptions: Continued bupropion HCl [Wellbutrin XL] 150 MG tablet extended release 24 hr 300 mg PO DAILY Patient Comments: states he takes only 150 mg QD TB 06/20/17 Atrovent HFA 17 mcg/actuation HFA aerosol inhaler 2 puff inhalation Q8H Hold Instructions: Pt Stopped/Never Started albuterol sulfate [ProAir HFA] 90 mcg/actuation HFA aerosol inhaler 1 puff inhalation ONCE nicotine (polacrilex) [Nicorette] 4 mg lozenge 4 mg buccal Q2H PRN tamsulosin 0.4 mg capsule See Rx Instructions .ROUTE .COMPLEX Qty: 180 0RF Dose Instruction: TAKE TWO CAPSULES BY MOUTH EVERY DAY Rx Instructions: TAKE TWO CAPSULES BY MOUTH EVERY DAY omeprazole 20 MG tablet,delayed release (DR/EC) 40 mg PO DAILY Discharge Instructions Additional Instructions: Your body will slowly reabsorb the fluid and edema in your feet which is related to the sunburn that you sustained. Keeping your feet elevated as much as possible and taking ibuprofen 400 to 600 mg 3 times a day will help. It will likely take up to a week for your feet to fully recover. Follow-up with primary care if not improving by next week. Return to ED if you develop worsening pain, redness, fever. HPI General Mode of arrival: ambulatory . Date/Time Provider Initiated Documentation: 03/28/24 21:56 . Limitations to Documentation: no limitations . Information obtained by: patient . HPI Narrative: Patient presents to ED with complaint of swollen feet. Patient sustained a bad sunburn to his feet on Saturday. He has been soaking them in cool water, using aloe vera gel, keeping them elevated. Feet are more swollen and tight. Difficult for him to wiggle his toes. Cannot feel his shoe on the left side. Has a small blister on the top of the left foot. He has no chest pain, shortness of breath, leg swelling. Related Data Home Medications Medication Instructions Recorded Confirmed bupropion HCl 150 mg 24 hr tablet, 300 mg PO DAILY 01/10/17 03/28/24 extended release (Wellbutrin XL) omeprazole 20 mg tablet,delayed 40 mg PO DAILY 03/01/18 03/28/24 release albuterol sulfate 90 mcg/actuation 1 puff inhalation ONCE 07/13/20 03/28/24 aerosol inhaler (ProAir HFA) ipratropium bromide 17 2 puff inhalation Q8H 07/13/20 03/28/24 mcg/actuation HFA aerosol inhaler (Atrovent HFA) nicotine (polacrilex) 4 mg buccal 4 mg buccal Q2H PRN 07/13/20 03/28/24 lozenge (Nicorette) tamsulosin 0.4 mg capsule See Rx Instructions .Route 01/01/24 03/28/24 .COMPLEX #180 caps Previous Rx's Medication Instructions Recorded tamsulosin 0.4 mg capsule See Rx Instructions .Route 01/01/24 .COMPLEX #180 caps Allergies Allergy/AdvReac Type Severity Reaction Status Date / Time meloxicam Allergy Mild Pt unsure Verified 03/28/24 21:55 of reaction or why he stopped using. fluticasone [From Flonase] AdvReac Mild Pt thinks Verified 03/28/24 21:55 he may have gotten a headache. General Stated Complaint: Burn RONY: 3 Review of Systems Narrative: Per HPI Exam Narrative Exam Narrative: Const: WDWN male in NAD. VS per triage. HEENT: NC/AT. Normal facial exam. Neck: Supple. Trachea midline. Lungs: Normal respiratory effort. Cor: RRR. Good DP pulses bilateral. Neuro: A+O x 3. Normal speech, mentation, gait. Cranial nerves II - XII grossly intact. No gross motor or sensory deficit. Ext: No C/C. Bilateral foot swelling left somewhat greater than right. Quarter size blister with clear fluid distal dorsum left foot. No warmth present. Legs are normal otherwise. Course Vital Signs Vital signs: Vital Signs Temperature 98.1 F 03/28/24 21:51 Pulse 79 03/28/24 21:51 Respiratory Rate 15 03/28/24 21:51 Blood Pressure 135/73 03/28/24 21:51 Pulse Oximetry 96 03/28/24 21:51 Temperature 98.1 F 03/28/24 21:51 Temperature Source Tympanic 03/28/24 21:51 Pulse 79 03/28/24 21:51 Respiratory Rate 15 03/28/24 21:51 Respiratory Effort Normal 03/28/24 21:56 Blood Pressure 135/73 03/28/24 21:51 Blood Pressure Position Sitting 03/28/24 21:51 Pulse Oximetry 96 03/28/24 21:51 Oxygen Delivery Method Room Air 03/28/24 21:51 Oxygen Flow Rate 0 03/28/24 21:51 Pain Level 9 03/28/24 21:56 Medical Decision Making Patient presenting with bilateral foot swelling status post severe sunburn on Saturday while at the beach in [place]. He has a small blister the dorsum of his left foot which is intact with clear fluid. He has good DP pulses. He has no evidence of infection. Discussed that his foot swelling is related to third spacing from the burn. This fluid will need to be reabsorbed by the body and lymph system. Recommend continued elevation of his legs. May take ibuprofen 3 times a day over the next few days to help with inflammatory process. Discussed wound care if the blister did break. Follow-up with primary care next week if not improving. Return precautions provided. PFSH All Active Problems (Updated 03/29/24 @ 01:07 by Dusty Mcelroy MD) Tobacco abuse (Acute) Pedal edema (Acute) Sunburn (Acute) Other bilateral secondary osteoarthritis of knee (Acute) Bilateral injections: 03/06/2024 Normal colonoscopy (Acute) Intestinal metaplasia of gastric mucosa (Acute 01/22/17) polypoid intestinal metaplasia, stomach, gastric mass, biopsy Tendonitis of left rotator cuff (Chronic) Injected 2016, 12/23/2018 Painful orthopaedic hardware (Chronic) Fractured syndesmotic screw left ankle Medical History (Updated 03/29/24 @ 01:07 by Dusty Mcelroy MD) BPH loc w urin obs/LUTS Erectile dysfunction Osteoarthritis Depression GERD (gastroesophageal reflux disease) Surgical History S/P ORIF (open reduction internal fixation) fracture ankle- screw present EGD - IV Sedation (01/22/17) Social History Smoking/Tobacco Use Status: Former Tobacco Use Smoking risk assessment performed?: Yes Alcohol Intake: current Alcohol Intake frequency: holidays/special occasions only Drug use: Never Substance use type: marijuana Do you feel safe at home: Yes Do you feel safe in your relationship?: Yes PAWSS Have you Been Recently Intoxicated or Drunk Within the Last 30 days?: No Have you Ever Experienced Previous Episodes of Alcohol Withdrawal?: No Have you ever Experienced Withdrawal Seizures?: No Have you ever Experienced Delirium Tremens(DT)s?: No Have you ever undergone Alcohol Rehabilitation Treatment (i.e, inpt ot outpatient treatment programs)?: No Have you ever Experienced Blackouts?: No Have you ever Combined Alcohol with other Downers within the last 90 days?: No Have you ever Combined Alcohol with any other Substance of Abuse during the last 90 days?: No Positive Blood Alcohol level on Presentation? [PCS.BAL]: No Evidence of Increased Autonomic Activity (i.e. HR>120, tremor, sweating, agitation, nausea)?: No Result: 0
[2024-03-28 23:41] VITALS: BP 135/73; PULSE 79; RESP 15; TEMP 36.7; O2SAT 96
== END 2024-03-28 23:41 | disposition home or self-care (01) ==
PROVIDERS: Emergency Provider Emergency Medicine; PCP Nurse Practitioner Family
DX: L55.1 Sunburn of second degree (principal); R60.0 Localized edema; T31.0 Burns involving less than 10% of body surface
CPT/HCPCS: 99283

== ENCOUNTER 2024-05-29 15:24 | Outpatient (REF) | payer MEDICAID, SELFPAY ==
[2024-05-29 19:19] LABS: Hemoglobin A1C 5.7 % (<5.7)
[2024-05-29 19:43] LABS: Calculated LDL 105 mg/dL (<100); Cholesterol 167 mg/dL (<200); HDL Cholesterol 40 mg/dL (40-60); Magnesium 2.1 mg/dL (1.8-2.4); Triglyceride 112 mg/dL (<150); Vitamin D 25 Total 48.6 ng/mL (30-100)
== END 2024-05-29 15:25 | disposition home or self-care (01) ==
LOC: NCHCN 15:24
PROVIDERS: PCP Nurse Practitioner Family; Visit Provider Nurse Practitioner Family
DX: R73.03 Prediabetes (principal); Z00.00 Encounter for general adult medical examination without abnormal findings; Z13.6 Encounter for screening for cardiovascular disorders; K21.9 Gastro-esophageal reflux disease without esophagitis
CPT/HCPCS: 80061; 82306; 83036; 83735

== ENCOUNTER 2024-11-12 00:40 | Outpatient (CLI) | payer MEDICAID, SELFPAY ==
--- NOTE | 2024-11-12 07:15 | DI.RAD_ITS ---
Exam(s) XR FOOT RT COMPLETE EXAM: XR FOOT RT COMPLETE CLINICAL HISTORY: Right foot pain,m79.671. TECHNIQUE: 2D digital imaging was performed. COMPARISON: CR XR FOOT LT COMPLETE from 11/12/2024 FINDINGS: 3 views No evidence of fracture or diastasis of the Lisfranc joint. There is prominent hallux valgus and valentin e degenerative change in the great toe metatarsophalangeal joint. The amount of hallux valgus on thi s side is more than is evident in the opposite-left foot. Other metatarsophalangeal joints appear un remarkable as do the midfoot articulations including tarsometatarsal joints. There is, however, an e lement of pes planus. No inferior calcaneal spur nor plantar fascia calcifications. There is a smal l enthesophyte on the posterior calcaneus Achilles insertion site. IMPRESSION: Prominent hallux valgus and some degenerative change in the great toe metatarsophalangeal joint. Pes planus. DATA REPOSITORY: RADIATION DOSE DELIVERED:
--- NOTE | 2024-11-12 07:15 | DI.RAD_ITS ---
Exam(s) XR FOOT LT COMPLETE EXAM: XR FOOT LT COMPLETE CLINICAL HISTORY: Left foot pain,m79.672. TECHNIQUE: 2D digital imaging was performed. COMPARISON: No exams were available for comparison FINDINGS: No evidence of fracture or diastasis of the Lisfranc joint. There is hallux valgus noted; but less than seen on the opposite-right side. There also some degener ative changes in the great toe metatarsophalangeal joint, more prominent laterally than medially in t his articulation. Other metatarsophalangeal joints appear unremarkable as are the tarsometatarsal gala ints and other midfoot articulations. There is no inferior calcaneal spur. Incidentally noted is a horizontal screw in the distal tibial metaphysis. IMPRESSION: Hallux valgus although less than is seen in the opposite-right foot. Other findings as above. DATA REPOSITORY: RADIATION DOSE DELIVERED:
== END 2024-11-12 01:00 ==
LOC: DI 00:40
PROVIDERS: PCP Nurse Practitioner Family; Visit Provider Podiatrist
DX: M20.22 Hallux rigidus, left foot (principal); M20.21 Hallux rigidus, right foot
CPT/HCPCS: 73630

== ENCOUNTER 2025-06-18 03:56 | Outpatient (CLI) | payer MEDICAID, SELFPAY ==
--- NOTE | 2025-06-18 | DI.CTLCSR_ITS ---
Exam(s) CT CHEST LUNG CANCER SCREEN EXAM: CT CHEST LUNG CANCER SCREEN CLINICAL HISTORY: NICOTINE DEPENDENCE,F17.210,SCREENING FOR LUNG CA TECHNIQUE: Imaging Protocol: Axial computed tomography images with coronal and sagittal reformatted images were created and reviewed. Low dose screening protocol. COMPARISON: CT CT CHEST LUNG CANCER SCREEN from 02/21/2024 FINDINGS: Tracheobronchial tree: No bronchiectasis or mucus plugging. Mediastinum and Kathie: No dominant adenopathy or fluid collection. Pulmonary parenchyma: No consolidation or dominant measurable mass. No visible emphysematous changes. No significant interstitial changes. Lung Nodules: 5 millimeter nodule again noted in the right minor fissure. Pleura: No effusion. No pneumothorax. Heart: The heart is not dilated. No coronary artery calcifications are seen. No pericardial effusion. Aorta: Thoracic aorta non-dilated. Upper abdomen: Unremarkable. Bones: Degenerative changes and scoliosis. Soft Tissues: Unremarkable. IMPRESSION: No suspicious pulmonary nodules. Lung RADS Cat 1 - Negative: No nodules and definitely benign nodules Lung-RADS 1.0 CATEGORIES: Category 0 - Prior chest CT exam(s) being located for comparison. Category 1 - Annual screening in 12 months. No nodules or definitely benign nodules. Category 2 - Annual screening in 12 months. Benign appearance. Nodules with low likelihood of becoming active cancer. Category 3 - 6-month follow-up. Probably benign. Short-term follow-up suggested. Nodules with low likelihood of becoming active cancer. Category 4A - 3-month follow-up and CT/PET if >8 mm in size. Suspicious finding. Findings which require additional testing. Category 4B - Findings which require additional testing and tissue sampling. Category 4X - Category 3 or 4 nodules with additional features or imaging findings that increases the suspicion of malignancy. Modifier S- Potentially clinically significant findings (non lung cancer) RADIATION DOSE DELIVERED: 125.61mGy.cm Total DLP DATA REPOSITORY: All CT scans at this facility are submitted to the National Radiology Data Registry (NRDR) Dose Index Registry (DIR) with the [employer] ([employer]). RADIATION OPTIMIZATION: All CT scans at this facility use at least one of these dose optimization techniques: automated exposure control; mA and/or kV adjustment per patient size (includes targeted exams where dose is matched to clinical indication); or iterative reconstruction.
== END 2025-06-18 04:16 ==
LOC: DI 03:56
PROVIDERS: PCP Nurse Practitioner Family; Visit Provider Nurse Practitioner Family
DX: Z12.2 Encounter for screening for malignant neoplasm of respiratory organs (principal); F17.210 Nicotine dependence, cigarettes, uncomplicated
CPT/HCPCS: 71271

== ENCOUNTER 2025-07-24 16:19 | Emergency (ER) | payer MEDICAID, SELFPAY ==
[2025-07-24] VITALS (11 sets, daily range): BP systolic 124–144; BP diastolic 75–84; PULSE 67–88; RESP 11–22; TEMP 36.8; O2SAT 93–98
--- NOTE | 2025-07-24 16:45 | DI.RAD_ITS ---
Exam(s) XR PORTABLE CHEST AP EXAM: XR PORTABLE CHEST AP CLINICAL HISTORY: epigastric pain. TECHNIQUE: 2D digital imaging was performed. COMPARISON: No exams were available for comparison FINDINGS: Single AP portable view. Heart size is upper normal. The mediastinum is not widened. Lungs are clear. No infiltrates nor obvious pleural effusions. There is no free air subjacent to the hemidiaphragms, given the epigastric pain here. IMPRESSION: No acute pulmonary findings on this single AP portable view of the chest. DATA REPOSITORY: RADIATION DOSE DELIVERED:
--- NOTE | 2025-07-24 16:45 | DI.CT_ITS ---
Exam(s) CT ABDOMEN PELVIS W EXAM: CT ABDOMEN PELVIS W CLINICAL HISTORY: LUQ pain. TECHNIQUE: Imaging Protocol: Axial computed tomography images with coronal and sagittal reformatted images were created and reviewed CONTRAST MATERIAL: Intravenous: Omnipaque-350 100cc Oral: None COMPARISON: CT CT ABDOMEN PELVIS W from 11/21/2019 FINDINGS: VISUALIZED LUNG BASES: Mild increased markings in the posterior basal segment left lower lobe. There are no pleural effusions.. ABDOMEN: There is no ascites. Small hiatal hernia noted LIVER: There are no focal hepatic lesions evident. No dilated intrahepatic ducts. GALLBLADDER/BILIARY: Gallbladder is mildly distended. There are no calcified gallstones evident. No gallbladder wall edema nor pericholecystic fluid. CBD is not dilated. PANCREAS: No evidence of pancreatic mass nor dilatation of the pancreatic duct. SPLEEN: Spleen is not enlarged. No obvious intrasplenic lesions. Splenic and portal veins are patent. ADRENALS: There are no significant adrenal masses. KIDNEYS:No cysts evident. No solid renal masses. No calculi nor hydronephrosis.. ABDOMINAL AORTA: Abdominal aorta is not enlarged. LYMPH NODES:There is no retroperitoneal nor paraaortic adenopathy. ABDOMINAL WALL: No evidence of significant anterior abdominal wall nor inguinal hernia. GI: There is no evidence of bowel obstruction, free air, nor abscess. PELVIS: GI: No evidence of appendicitis.No evidence of sigmoid diverticulitis. LYMPH NODES: There is no intrapelvic nor inguinal adenopathy. REPRODUCTIVE: Prostate size normal. Seminal vesicles unremarkable. URINARY BLADDER: Normal size. No significant focal findings OSSEOUS: No fractures and no significant osseous lesions. IMPRESSION: 1. Minimal increased markings in the left lung base specifically in the posterior basal segment of the left lower lobe. Does not appear to be confluent infiltrate and there are no pleural effusions. 2. Small hiatal hernia. No other significant findings in the abdomen pelvis Report called by myself to ER physician 07/24/2025 at 6:30 p.m. RADIATION DOSE DELIVERED: 711.89mGy.cm Total DLP DATA REPOSITORY: All CT scans at this facility are submitted to the National Radiology Data Registry (NRDR) Dose Index Registry (DIR) with the [employer] (ACR). RADIATION OPTIMIZATION: All CT scans at this facility use at least one of these dose optimization techniques: automated exposure control; mA and/or kV adjustment per patient size (includes targeted exams where dose is matched to clinical indication); or iterative reconstruction.
--- NOTE | 2025-07-24 16:45 | RT.EKG_ITS ---
APPROVED REPORT Exam: Resting ECG Reason for Exam: epigatric pain Patient Location: E HR:74 bpm ECG Measurements Heart Rate 74 AXIS IA 164 P 37 QRSd 119 QRS 10 QT 402 T 28 QTc 447 Conclusion Sinus rhythm...normal P axis, V-rate 60- 99 Nonspecific intraventricular conduction delay...QRSd >115mS, not LBBB/RBBB
[2025-07-24 16:56] LABS: Abs Immature Grans 0.04 10^3/uL (0.0-0.06); HCT 42.8 % (40.0-50.0); HGB 14.4 g/dL (13.5-17.5); Immature Grans % 0.4 %; MCH 29.9 pg (27.0-33.0); MCHC 33.6 % (32.0-36.0); MCV 89 fL (80-95); MPV 10.3 fL (8.0-11.0); Platelet Count 339 10^3/uL (130-400); RBC 4.81 10^6/uL (4.36-5.78); RDW 13.0 % (11.8-14.1); RDW-SD 42.5 fL; WBC 10.74 10^3/uL (4.4-10.8)
[2025-07-24] MEDS: MYLANTA 30 ML, LIDOCAINE 2% VISCOUS UD 15 ML PO (17:08)
[2025-07-24] MEDS: Pantoprazole 40 MG VIAL IVP (17:09)
[2025-07-24 17:17] LABS: ALT 44 U/L (16-63); AST 16 U/L (15-37); Albumin 4.0 g/dL (3.4-5.0); Alkaline Phosphatase 98 U/L (46-116); Anion Gap 10.5 mmol/L (3-11); BUN 15 mg/dL (7-18); Bilirubin, Total 0.3 mg/dL (0.2-1.0); CO2 25.5 mmol/L (21.0-32.0); Calcium 9.0 mg/dL (8.5-10.1); Chloride 104 mmol/L (98-107); Glucose 119 mg/dL (74-106); Lipase 22 U/L (<78); Potassium 3.8 mmol/L (3.5-5.1); Sodium 140 mmol/L (136-145); Total Protein 7.7 g/dL (6.4-8.2)
[2025-07-24 17:22] LABS: Troponin I 5 ng/L (<or=76)
--- NOTE | 2025-07-24 17:23 | W.ED.GENAD ---
Discharge Plan Disposition Patient Disposition: Home Discharge Details Clinical Impression: Abdominal pain, Pre-diabetes, Hernia, hiatal Primary Care Provider: Danika Giron ED Provider: Tru Gamez Home Meds and New Rx's Prescriptions: New dicyclomine 20 mg tablet 20 mg PO TID Qty: 15 0RF Continued bupropion HCl [Wellbutrin XL] 150 MG tablet extended release 24 hr 300 mg PO DAILY Patient Comments: states he takes only 150 mg QD TB 06/20/17 nicotine (polacrilex) [Nicorette] 4 mg lozenge 4 mg buccal Q2H PRN tamsulosin 0.4 mg capsule 0.8 mg PO DAILY Qty: 180 3RF celecoxib 200 mg capsule See Rx Instructions .ROUTE .COMPLEX Qty: 60 0RF Dose Instruction: TAKE ONE CAPSULE BY MOUTH TWICE A DAY Rx Instructions: TAKE ONE CAPSULE BY MOUTH TWICE A DAY omeprazole 20 MG tablet,delayed release (DR/EC) 40 mg PO DAILY Discharge Instructions Instructions: Peptic ulcers, Abdominal Pain, Adult ED Additional Instructions: As discussed, based on your reported history and your workup here today suspicious for an issue with the lining of the stomach such as gastritis or peptic ulcer disease. I would recommend continue to take your omeprazole, you may want to reconsider taking the meloxicam as I believe this could be adding to your difficulties. I will refer you to a general surgeon who can perform an endoscopy, and also give you recommendations regarding the finding of a hiatal hernia today. Please follow-up with your primary care provider regarding your visit to the emergency department today. Be sure to discuss results of all test performed here today to include radiology, and laboratory testing as well as results for any pending cultures. Should your symptoms worsen, or if you develop new concerning symptoms, please return immediately emergency department for further evaluation. Discharge Data Discharge Date/Time-TO BE ENTERED AT DEPARTURE: 07/24/25 20:38 HPI General Date/Time Provider Initiated Documentation: 07/24/25 16:20. HPI Narrative: MDM/Narrative: 55-year-old male presents for epigastric abdominal pain which has been intermittent for the past month and continues for the past week. This comes shortly after starting daily meloxicam for treatment of osteoarthritis of the knee approximately a little over a month ago. Vital signs are normal limits. Physical exam unremarkable. Based on history and presentation and other risk factors most suspicious for peptic ulcer disease gastritis or duodenal ulcer, however will screen for ACS, pneumonia, pancreatitis among other acute life-threatening causes of patient's symptoms. Will assess with blood work including CBC, CMP, lipase, troponin, chest x-ray and CAT scan pelvis. Will treat patient with GI cocktail if no improvement will try IV pain medications. ED course: Patient with no relief from GI cocktail. Some improvement following IV morphine. Labs are unremarkable, hemoglobin A1c consistent with prediabetes. No leukocytosis or abdominal organ dysfunction to suggest acute life-threatening pathology on lab work. CT scan shows no significant acute findings, notable small hiatal hernia which potentially could be causing the patient's symptoms however more suspicious for peptic ulcer disease/gastritis given patient's recent adoption of meloxicam for his chronic pain. Will discharge patient with referral to general surgery regarding his hiatal hernia discussed his further endoscopy/operative repair as an order, otherwise instructions to return to the emergency department should he have new or worsening symptoms. Disposition: Discharge HPI: 55-year-old male with past medical history of lifelong cigarette smoking, hypertension, GERD, and few approximately over 1 month ago started daily meloxicam to manage osteoarthritis pain, presents for evaluation of left upper quadrant and epigastric abdominal pain initially intermittent over the past several weeks and then this past week becoming constant, notes some improvement with milk of magnesia, denies any associated chest pain, shortness of breath, vomiting, diarrhea or any other new or concerning symptoms. ROS: Negative besides as mentioned above Exam: Gen: A&O NAD HEENT: NCAT, EOMI, not icteric. External ears normal. No rhinorrhea. Moist mucous membranes. Neck: Supple, full range of motion, no observable masses, No meningeal sign. Lungs: No Respiratory distress. CV: RRR, no edema. Abdomen: Soft, nondistended, No rebound tenderness. MSK: No joint swelling, no redness. Skin: No rashes, petechiae, lesions. Normal color per patient. Neuro: Normal Gait, Grossly intact. Psych: Appropriate for situation. Rhythm: NSR Rate: 74 Marquez: Normal axis Intervals: Normal intervals Other findings: No acute ST segment or T wave changes to suggest acute ischemia. Labs: Laboratory Tests Range/Units 07/24/25 07/24/25 16:50 17:57 WBC (4.4-10.8) 10^3/uL 10.74 RBC (4.36-5.78) 10^6/uL 4.81 Hgb (13.5-17.5) g/dL 14.4 Hct (40.0-50.0) % 42.8 MCV (80-95) fL 89 MCH (27.0-33.0) pg 29.9 MCHC (32.0-36.0) % 33.6 RDW (11.8-14.1) % 13.0 Plt Count (130-400) 10^3/uL 339 MPV (8.0-11.0) fL 10.3 Immature Gran % % 0.4 Neutrophils % % 71.0 Lymphocytes % % 19.5 Monocytes % % 6.5 Eosinophils % % 2.2 Basophils % % 0.4 Nucleated RBC % (0.0-0.3) % 0.0 Absolute Neutrophils (1.2-6.7) 10^3/uL 7.63 H Absolute Lymphocytes (1.2-3.4) 10^3/uL 2.09 Absolute Monocytes (0.1-0.8) 10^3/uL 0.70 Absolute Eosinophils (0.0-0.7) 10^3/uL 0.24 Absolute Basophils (0.0-0.2) 10^3/uL 0.04 VBG Lactate (<or=2.0) mmol/L 1.2 Sodium (136-145) mmol/L 140 Potassium (3.5-5.1) mmol/L 3.8 Chloride (98-107) mmol/L 104 Carbon Dioxide (21.0-32.0) mmol/L 25.5 Anion Gap (3-11) mmol/L 10.5 BUN (7-18) mg/dL 15 Creatinine (0.70-1.30) mg/dL 1.2 Est GFR (CKD-EPI 2020) (mL/min/1.73m2) 71.42 Glucose (74-106) mg/dL 119 H Hemoglobin A1c (<5.7) % 5.8 H Calcium (8.5-10.1) mg/dL 9.0 Total Bilirubin (0.2-1.0) mg/dL 0.3 AST (15-37) U/L 16 ALT (16-63) U/L 44 Alkaline Phosphatase (46-116) U/L 98 Troponin I (<or=76) ng/L 5 5 Total Protein (6.4-8.2) g/dL 7.7 Albumin (3.4-5.0) g/dL 4.0 Lipase (<78) U/L 22 Radiology: Exam(s) XR PORTABLE CHEST AP EXAM: XR PORTABLE CHEST AP CLINICAL HISTORY: epigastric pain. TECHNIQUE: 2D digital imaging was performed. COMPARISON: No exams were available for comparison FINDINGS: Single AP portable view. Heart size is upper normal. The mediastinum is not widened. Lungs are clear. No infiltrates nor obvious pleural effusions. There is no free air subjacent to the hemidiaphragms, given the epigastric pain here. IMPRESSION: No acute pulmonary findings on this single AP portable view of the chest. xam(s) CT ABDOMEN PELVIS W EXAM: CT ABDOMEN PELVIS W CLINICAL HISTORY: LUQ pain. TECHNIQUE: Imaging Protocol: Axial computed tomography images with coronal and sagittal reformatted images were created and reviewed CONTRAST MATERIAL: Intravenous: Omnipaque-350 100cc Oral: None COMPARISON: CT CT ABDOMEN PELVIS W from 11/21/2019 FINDINGS: VISUALIZED LUNG BASES: Mild increased markings in the posterior basal segment left lower lobe. There are no pleural effusions.. ABDOMEN: There is no ascites. Small hiatal hernia noted LIVER: There are no focal hepatic lesions evident. No dilated intrahepatic ducts. GALLBLADDER/BILIARY: Gallbladder is mildly distended. There are no calcified gallstones evident. No gallbladder wall edema nor pericholecystic fluid. CBD is not dilated. PANCREAS: No evidence of pancreatic mass nor dilatation of the pancreatic duct. SPLEEN: Spleen is not enlarged. No obvious intrasplenic lesions. Splenic and portal veins are patent. ADRENALS: There are no significant adrenal masses. KIDNEYS:No cysts evident. No solid renal masses. No calculi nor hydronephrosis.. ABDOMINAL AORTA: Abdominal aorta is not enlarged. LYMPH NODES:There is no retroperitoneal nor paraaortic adenopathy. ABDOMINAL WALL: No evidence of significant anterior abdominal wall nor inguinal hernia. GI: There is no evidence of bowel obstruction, free air, nor abscess. PELVIS: GI: No evidence of appendicitis.No evidence of sigmoid diverticulitis. LYMPH NODES: There is no intrapelvic nor inguinal adenopathy. REPRODUCTIVE: Prostate size normal. Seminal vesicles unremarkable. URINARY BLADDER: Normal size. No significant focal findings OSSEOUS: No fractures and no significant osseous lesions. IMPRESSION: 1. Minimal increased markings in the left lung base specifically in the posterior basal segment of the left lower lobe. Does not appear to be confluent infiltrate and there are no pleural effusions. 2. Small hiatal hernia. No other significant findings in the abdomen pelvis Report called by myself to ER physician 07/24/2025 at 6:30 p.m. Related Data Home Medications Medication Instructions Recorded Confirmed bupropion HCl 150 mg 24 hr tablet, 300 mg PO DAILY 01/10/17 07/24/25 extended release (Wellbutrin XL) omeprazole 20 mg tablet,delayed 40 mg PO DAILY 03/01/18 07/24/25 release nicotine (polacrilex) 4 mg buccal 4 mg buccal Q2H PRN 07/13/20 07/24/25 lozenge (Nicorette) tamsulosin 0.4 mg capsule 0.8 mg (2 x 0.4 mg) PO DAILY #180 05/31/25 07/24/25 caps celecoxib 200 mg capsule See Rx Instructions .Route 06/28/25 07/24/25 .COMPLEX #60 caps dicyclomine 20 mg tablet 20 mg PO TID #15 tabs 07/24/25 Previous Rx's Medication Instructions Recorded tamsulosin 0.4 mg capsule 0.8 mg (2 x 0.4 mg) PO DAILY #180 05/31/25 caps celecoxib 200 mg capsule See Rx Instructions .Route 06/28/25 .COMPLEX #60 caps dicyclomine 20 mg tablet 20 mg PO TID #15 tabs 07/24/25 General Stated Complaint: Abd Prob RONY: 3 Course Vital Signs Vital signs: Vital Signs Temperature 36.8 C 07/24/25 16: Pulse 82 07/24/25 16:25 Respiratory Rate 20 07/24/25 16: Blood Pressure 144/84 H 07/24/25 16:25 Pulse Oximetry 95 07/24/25 16:25 Temperature 36.8 C 07/24/25 16:25 Pulse 82 11/01/25 16:25 Respiratory Rate 20 07/24/25 16:25 Blood Pressure 144/84 H 07/24/25 16:25 Blood Pressure Position Sitting 07/24/25 16:25 Pulse Oximetry 95 07/24/25 16:25 Oxygen Delivery Method Room Air 07/24/25 16:25 Oxygen Flow Rate 0 07/24/25 16:25 Lab/Test Results Lab/Test Results: Laboratory Tests Range/Units 07/24/25 16:50 WBC (4.4-10.8) 10^3/uL 10.74 RBC (4.36-5.78) 10^6/uL 4.81 Hgb (13.5-17.5) g/dL 14.4 Hct (40.0-50.0) % 42.8 MCV (80-95) fL 89 MCH (27.0-33.0) pg 29.9 MCHC (32.0-36.0) % 33.6 RDW (11.8-14.1) % 13.0 Plt Count (130-400) 10^3/uL 339 MPV (8.0-11.0) fL 10.3 Immature Gran % % 0.4 Neutrophils % % 71.0 Lymphocytes % % 19.5 Monocytes % % 6.5 Eosinophils % % 2.2 Basophils % % 0.4 Nucleated RBC % (0.0-0.3) % 0.0 Absolute Neutrophils (1.2-6.7) 10^3/uL 7.63 H Absolute Lymphocytes (1.2-3.4) 10^3/uL 2.09 Absolute Monocytes (0.1-0.8) 10^3/uL 0.70 Absolute Eosinophils (0.0-0.7) 10^3/uL 0.24 Absolute Basophils (0.0-0.2) 10^3/uL 0.04 VBG Lactate (<or=2.0) mmol/L 1.2 Sodium (136-145) mmol/L 140 Potassium (3.5-5.1) mmol/L 3.8 Chloride (98-107) mmol/L 104 Carbon Dioxide (21.0-32.0) mmol/L 25.5 Anion Gap (3-11) mmol/L 10.5 BUN (7-18) mg/dL 15 Creatinine (0.70-1.30) mg/dL 1.2 Est GFR (CKD-EPI 2020) (mL/min/1.73m2) 71.42 Glucose (74-106) mg/dL 119 H Calcium (8.5-10.1) mg/dL 9.0 Total Bilirubin (0.2-1.0) mg/dL 0.3 AST (15-37) U/L 16 ALT (16-63) U/L 44 Alkaline Phosphatase (46-116) U/L 98 Total Protein (6.4-8.2) g/dL 7.7 Albumin (3.4-5.0) g/dL 4.0 Lipase (<78) U/L 22 PFSH All Active Problems (Updated 07/24/25 @ 18:41 by Tru Gamez MD) Hernia, hiatal (Chronic) Pre-diabetes (Acute) Abdominal pain (Acute) Bilateral bunions (Acute) Hallux rigidus, bilateral (Acute) Tobacco abuse (Acute) Other bilateral secondary osteoarthritis of knee (Acute) Bilateral injections: 06/17/25; 02/04/25; 03/06/2024, 06/12/24 Normal colonoscopy (Acute) Intestinal metaplasia of gastric mucosa (Acute 01/22/17) polypoid intestinal metaplasia, stomach, gastric mass, biopsy Tendonitis of left rotator cuff (Chronic) Injected 2016, 12/23/2018 Painful orthopaedic hardware (Chronic) Fractured syndesmotic screw left ankle Medical History BPH loc w urin obs/LUTS Erectile dysfunction Osteoarthritis Depression GERD (gastroesophageal reflux disease) Surgical History S/P ORIF (open reduction internal fixation) fracture ankle- screw present EGD - IV Sedation (01/22/17) Social History Smoking/Tobacco Use Status: Current every day Tobacco Type: cigarettes Years smoked: 7 Smoking risk assessment performed?: Yes Alcohol Intake: former Drug use: Never Substance use type: does not use Do you feel safe at home: Yes Do you feel safe in your relationship?: Yes
[2025-07-24] MEDS: Normal Saline - Diluent 50 ML VIAL IJ (18:05)
[2025-07-24] MEDS: Omnipaque 350 MG/ML 100 ML BTL IJ (18:05)
[2025-07-24 18:21] LABS: Troponin I 5 ng/L (<or=76)
[2025-07-24 18:23] LABS: Hemoglobin A1C 5.8 % (<5.7)
[2025-07-24] MEDS: MORPHine 10 MG/ML VIAL 6 MG IVP (18:42)
[2025-07-24] MEDS: ACETAMINOPHEN 1,000 MG/100 ML BAG 400 MG IVPB (19:28)
[2025-07-24] MEDS: Dicyclomine 20 MG TAB PO (19:28)
[2025-07-24] MEDS: Droperidol 5 MG/2 ML VIAL 1.25 MG IVP (19:29)
--- NOTE | 2025-07-25 10:30 | NUR.NOTE ---
Nursing Note: Chart accessed due to Ashley Olson calling about Dicyclomine prescribed by Carol 07/24/2025 being a contraindication for a medication patient is currently on. Phone call sent back to Steven.
== END 2025-07-24 20:38 | disposition home or self-care (01) ==
PROVIDERS: Emergency Provider General Practice; PCP Nurse Practitioner Family
DX: R10.32 Left lower quadrant pain (principal); K44.9 Diaphragmatic hernia without obstruction or gangrene; R73.03 Prediabetes
CPT/HCPCS: 99284; 99285; 36415; 96375; 80053; 83690; 93005; 96365; 71045; 74177; 83036; 83605; 84484; 85025; 93010; J0131; J1790; J2270; J2470; J3490

== ENCOUNTER 2025-08-03 08:04 | Day surgery (SDC) | payer MEDICAID, SELFPAY ==
--- NOTE | 2025-08-02 19:40 | W.PM.DSUDISC ---
Date of service: 08/03/25 Discharge Plan Disposition Patient Disposition: Home Condition: Good Discharge Details Attending Provider: Eric Valentin Primary Care Provider: Danika Giron Home Meds and New Rx's Prescriptions: Continued bupropion HCl [Wellbutrin XL] 150 MG tablet extended release 24 hr 300 mg PO DAILY Patient Comments: states he takes only 150 mg QD TB 06/20/17 nicotine (polacrilex) [Nicorette] 4 mg lozenge 4 mg buccal Q2H PRN tamsulosin 0.4 mg capsule 0.8 mg PO DAILY Qty: 180 3RF celecoxib 200 mg capsule See Rx Instructions .ROUTE .COMPLEX Qty: 60 0RF Dose Instruction: TAKE ONE CAPSULE BY MOUTH TWICE A DAY Rx Instructions: TAKE ONE CAPSULE BY MOUTH TWICE A DAY omeprazole 20 MG tablet,delayed release (DR/EC) 40 mg PO DAILY dicyclomine 20 mg tablet 20 mg PO TID Qty: 15 0RF Discontinued bisacodyl [Dulcolax (bisacodyl)] 5 mg tablet,delayed release (DR/EC) 5 mg PO ONCE Qty: 4 0RF Rx Instructions: take per colonoscopy instructions polyethylene glycol 3350 17 gram/dose powder 238 g PO ONCE Qty: 238 0RF Rx Instructions: take per colonoscopy instructions Discharge Instructions Instructions: Hiatal hernia, Diverticulosis, Ahn's Esophagus (DC) Additional Instructions: Marva Antonio, it was good to see you today, and I hope you have a quick and uneventful recovery from the procedures. With regards to the upper endoscopy, you do have a hiatal hernia. This occurs on the top portion of your stomach slips above your diaphragm or your breathing muscle. These are typically graded 1 through 4, and based on the measurements, I would consider yours to be a grade 4. This is associated with a little bit of Ahn's esophagus, which occurs when acid reflux is up on the bottom portion of the esophagus. I did several biopsies of your stomach as well as the GE junction to rule out any other problems. Those will take a week or 2 to get back, but assuming there relatively normal, then my suspicion is that the hiatal hernia is the cause of your symptoms, and you probably be best served with a referral to a specialist for consideration of surgical repair. Once I have the results of the biopsies, I will let you know. With regards to the colonoscopy, your prep was excellent, and I could see everything fine. I did not see any tumors or polyps. Nor did I see any evidence of any active inflammation that would be the source of your discomfort. You do have some diverticulosis, but I am skeptical that this is what you are feeling. I will attach some basic information here about Ahn's esophagus, diverticulosis, as well as hiatal hernias. If you need anything, or have any questions, please do not hesitate to call. Otherwise, we will be in touch once all the biopsy results are available. 1. If tolerated, consume a soft, low fiber diet for 1-2 days. [address] not drive, drink alcohol, operate machinery, make critical decisions, or do activities that require coordination or balance for 24 hours. 3. Because air was put into your colon during the procedure, expelling air from your rectum (passing gas or farting) is normal. 4. You may not have a bowel movement for 1-3 days because of the colonoscopy prep. This is normal. 5. You may experience a sore throat for 24 to 48 hours. You may use throat lozenges or gargle with warm salt water to relieve the discomfort. 6. Because air was put into your stomach during the procedure, you may experience some belching. 7. Go directly to the emergency room if you notice any of the following: Develop chills (warm to touch), or if you have a thermometer and your temperature is above 101 Difficulty breathing or difficultly swallowing Persistent vomiting Severe abdominal pain, other than gas cramps Severe chest pain Black, tarry stools Any bleeding – exceeding one tablespoon 8. Call your physician if the site where your intravenous was started becomes red, swollen, painful, and warm to touch. 9. Your physician has reviewed your pre-procedure medications. Please continue to take those medications as previously ordered. You will be given specific information/education regarding any changes to your medications before leaving. Stand Alone Forms: Portal Information Activity:: Activity as Tolerated Diet:: As Tolerated Discharge Orders Discharge Orders: Discharge Order (Routine); Ordered 08/02/25 Ordered By: Eric Valentin DS: Diagnosis Discharge Diagnosis (1) Abdominal pain: Status: Acute Asessment and Plan: Follow-up on biopsy results
--- NOTE | 2025-08-02 19:50 | COLE_ITS ---
Date of service: 08/03/25 Time of Service: 10:22 Colonoscopy Report Date of procedure: 08/03/25 Pre-op diagnosis general: abdominal pain Post-op diagnosis procedure note: other (Ahn's esophagus, Hill grade 4 hiatal hernia; sigmoid diverticulosis) Procedure: EGD with biopsies and colonoscopy with biopsies Surgeon: Eric Valentin Anesthesia Type: General:No Airway Estimated blood loss (mL): 10 Pathology: other (Cold forceps biopsies of GE junction with Ahn's esophagus, nondirected biopsies of gastric antrum and body to rule out Helicobacter pylori; random colon biopsies to rule out microscopic colitis) Complications: None Disposition: same day Indications: Lance is a 55 yearold man with abdominal pain. Prep: Miralax/Dulcolax Procedure Start Time: 09:39 Procedure End Time: 10:05 Retraction Time: 7 Findings: Short segment Ahn's esophagus; Hill grade 4 sliding hiatal hernia; sigmoid diverticulosis Procedure Description: After the initiation of anesthesia, and with the assistance of a bite block, I advanced a standard gastroscope through the mouth past the hypopharynx and into the esophagus. Under the direct vision of the scope, I advanced down the esophagus towards the stomach. The upper and midesophagus were normal in course and caliber. There was no obvious mucosal pathology. There is a large sliding hiatal hernia. Measurement of the GE junction distance is a little bit difficult, but the Z-line measures just about 34 cm past the incisors. There is less than 2 cm of irregularity consistent with reflux, or perhaps Ahn's esophagus. Narrowband imaging was used to assist with the analysis. I can traverse into the herniated portion of the upper stomach with ease. This mucosa is normal and healthy appearing. I can advance down into the stomach. I insufflated into the rugae started to distend. I performed retroflexion. Again seen is a Hill grade 4 sliding hiatal hernia. The remainder of the gastric body, antrum, and pylorus are all normal and healthy appearing. I can advance d own across the pylorus with ease into the duodenum, which is all normal. I brought the camera back up into the stomach proper and perform some nondirected biopsies of the gastric antrum and body to rule out Helicobacter pylori. I then brought the camera back up to the GE junction for cold forceps biopsies here to evaluate the Ahn's esophagus. There was minimal bleeding from all of the biopsy sites, nothing appeared worrisome. I then emptied the stomach completely before removing the camera out along the length of the esophagus 1 last time. Next we rolled Paco into the left lateral decubitus position. Care was taken to ensure that he was padded and supported appropriately. I began by performing an external anorectal exam. Perineum and skin were normal, as was the anal verge. There was no evidence of external hemorrhoids. Next, I performed a digital rectal exam. I did not appreciate any abnormal findings. Next, I advanced a colonoscope into the rectal vault. I performed retroflexion. This appeared normal. Using irrigation, I then advanced the colonoscope beyond the rectal folds and into the sigmoid colon before advancing towards the cecum. The scope was noted to be in the cecum by identification of the ileocecal valve and appendiceal orifice. I then began withdrawing the colonoscope using repeated irrigation as necessary for full evaluation of the colonic mucosa. There is some narrowed mouth sigmoid diverticulosis. In light of the uncertainty of the abdominal discomfort, I did perform some nondirected cold forceps biopsies of the colonic mucosa all along the length of the large intestine. There was no significant bleeding from any of the sites. Once the scope was withdrawn to the level of the rectum, great care was taken to examine portions of the rectal folds. Finally, the scope was withdrawn and the patient was brought to the same-day surgery recovery unit as the anesthetic wore off. The findings and instructions were shared with the patient prior to discharge. [place] Bowel Prep [place] Bowel Prep Right Colon: 3 Left Colon: 3 Transverse Colon: 3 Total Score: 9
[2025-08-03 08:45] VITALS: BP 135/83; PULSE 89; RESP 20; TEMP 36.3; O2SAT 96
[2025-08-03] MEDS: Lactated Ringers 1,000 ML 80 ML IV (08:57)
--- NOTE | 2025-08-03 09:13 | W.ANESPRE ---
General Info Date of Service Date Performed: 08/03/25 Height: 5 ft 10 in Weight: 116.12 kg Body Mass Index (BMI): 36.7 Surgical Procedure: Operation Date: 08/03/25 09:50 Proposed Procedure Side Surgeon p Colonoscopy/Gastroscopy Eric Valentin MD Meds Allergies and Home Medications Allergies Allergy/AdvReac Type Severity Reaction Status Date / Time No Known Allergies Allergy Verified 08/03/25 08:43 Home Medication Medication Instructions Recorded bupropion HCl 150 mg 24 hr tablet, 300 mg PO DAILY 01/10/17 extended release (Wellbutrin XL) omeprazole 20 mg tablet,delayed 40 mg PO DAILY 03/01/18 release nicotine (polacrilex) 4 mg buccal 4 mg buccal Q2H PRN 07/13/20 lozenge (Nicorette) tamsulosin 0.4 mg capsule 0.8 mg (2 x 0.4 mg) PO DAILY #180 05/31/25 caps celecoxib 200 mg capsule See Rx Instructions .Route 06/28/25 .COMPLEX #60 caps dicyclomine 20 mg tablet 20 mg PO TID #15 tabs 07/24/25 Current Visit Medications: Current Medications Generic Name Dose Route Start Last Admin Trade Name Freq PRN Reason Stop Dose Admin Ringer's Solution 1,000 mls @ 80 mls/hr 08/03/25 06:00 08/03/25 08:57 IV 08/03/25 23:59 80 mls/hr INFUSION MANUEL Administration IV Miscellaneous Supplies 1 each 08/03/25 06:00 Iv Access IV 08/03/25 23:59 DIRECTED MANUEL Sodium Chloride 0 ml 08/03/25 06:00 Normal Saline Flush 10 Ml Syr IV 08/03/25 23:59 PRN PRN Sodium Chloride 0 ml 08/03/25 06:00 Normal Saline 10 Ml Vial IJ 08/03/25 23:59 DIRECTED PRN Sterile Water 0 ml 08/03/25 06:00 Water,Injection,Sterile 10 Ml Vial IJ 08/03/25 23:59 DIRECTED PRN PFSH Active Problems Active Problems: Problem Status Onset Code Hernia, hiatal Chronic K44.9 Pre-diabetes Acute R73.03 Abdominal pain Acute R10.9 Bilateral bunions Acute M21.611, M21.612 Hallux rigidus, bilateral Acute M20.21, M20.22 Tobacco abuse Acute Z72.0 Other bilateral secondary osteoarthritis of knee Acute M17.4 Normal colonoscopy Acute Intestinal metaplasia of gastric mucosa Acute 01/22/17 K31.89 Tendonitis of left rotator cuff Chronic M75.82 Painful orthopaedic hardware Chronic T84.84XA Medical History Medical History BPH loc w urin obs/LUTS Erectile dysfunction Osteoarthritis Depression GERD (gastroesophageal reflux disease) Surgical History Surgical History S/P ORIF (open reduction internal fixation) fracture ankle- screw present EGD - IV Sedation (01/22/17) Tobacco Smoking/Tobacco Use Status: Current every day Tobacco Type: cigarettes Years smoked: 7 Passive smoking exposure: Yes Alcohol Alcohol Intake: former Substance Use Substance use: Never Substance use type: does not use Vital Signs and Lab Results Vital Signs Most Recent Vital Signs in EMR: Most Recent Vital Signs Temp Pulse Resp BP Pulse Ox 36.3 C L 89 20 135/83 96 08/03/25 08:45 08/03/25 08:45 08/03/25 08:45 08/03/25 08:45 08/03/25 08:45 Lab Results Complete Blood Count: WBC, (4.4-10.8) 10.74 10^3/uL 07/24/25, 16:50 RBC, (4.36-5.78) 4.81 10^6/uL 07/24/25, 16:50 Hgb, (13.5-17.5) 14.4 g/dL 07/24/25, 16:50 Hct, (40.0-50.0) 42.8 % 07/24/25, 16:50 Plt Count, (130-400) 339 10^3/uL 07/24/25, 16:50 VBG Lactate, (<or=2.0) 1.2 mmol/L 07/24/25, 16:50 Complete Metabolic Panel: Sodium, (136-145) 140 mmol/L 07/24/25, 16:50 Potassium, (3.5-5.1) 3.8 mmol/L 07/24/25, 16:50 Chloride, (98-107) 104 mmol/L 07/24/25, 16:50 Carbon Dioxide, (21.0-32.0) 25.5 mmol/L 07/24/25, 16:50 BUN, (7-18) 15 mg/dL 07/24/25, 16:50 Creatinine, (0.70-1.30) 1.2 mg/dL 07/24/25, 16:50 Est GFR (CKD-EPI 2020), (mL/min/1.73m2) 71.42 07/24/25, 16:50 Calcium, (8.5-10.1) 9.0 mg/dL 07/24/25, 16:50 Albumin, (3.4-5.0) 4.0 g/dL 07/24/25, 16:50 Glucose, (74-106) 119 mg/dL H 07/24/25, 16:50 Hemoglobin A1c, (<5.7) 5.8 % H 07/24/25, 16:50 Liver Function Panel: ALT, (16-63) 44 U/L 07/24/25, 16:50 AST, (15-37) 16 U/L 07/24/25, 16:50 Cardiac Panel: Troponin I, (<or=76) 5 ng/L 07/24/25 Pancreas Panel: Lipase, (<78) 22 U/L 07/24/25, 16:50 Anesthesia Assessment and Plan Anesthesia History Personal History: No History of Anesthesia Complications Family History: No Family History of Anesthesia Complications Exercise Tolerance Exercise Tolerance: Metabolic Equivalents>4 Pertinent Negatives Pertinent Negatives: No Symptoms of GERD Cardiac & Pulmonary Exam Cardiac Exam: Normal S1/S2 Heart Sounds Pulmonary Exam: Clear Bilateral Breath Sounds Implantable Cardiac Device Does patient have a Pacemaker or an ICD?: No Airway Exam Known Difficult Airway: No Mallampati Class: 2 Mouth Opening: Normal (> 3cm) Thyromental Distance: Greater than 3 cm Neck Range of Motion: Full ROM Neck Circumference: Normal Teeth Condition: Normal Dentition ASA Classification ASA Score: ASA 2 Emergency Case?: No NPO Status NPO Status: NPO Clears >2 hours, Solids >8 hours Anesthesia Plan Resuscitation Status: Full Code Anesthesia Technique: General Anesthesia Airway Planned: Natural Airway Monitors Used: Standard Monitors Preoperative Comments:: Chronic cough
[2025-08-03 09:15] VITALS: BMI 36.7
--- NOTE | 2025-08-03 09:40 | BOWEL_PTH ---
PATIENT: Lance Elrdidge LOC: [facility] U#:[id number] AGE/SX: 55/M ROOM: RE08/03/[address]: Eric Valentin MD : 1970 BED: DIS: 08/03/2025 SPEC #: [id number] RECD: 08/03/25 12:55 STATUS: EDITH RE #: [id number] PHILLIP: 08/03/25 09:[address]: Eric Valentin DEPT: Surgical Specimen RECD BY: Lro Koehler ENTERED: 08/03/25 12:58 SP TYPE: Bowel OTHR DR: Danika Giron Tissues: 1 - STOMACH BIOPSY 2 - STOMACH BIOPSY 3 - ESOPHAGUS BIOPSY 4 - BIOPSY BOWEL Procedures: GROSS AND MICRO LEVEL 4 Comments: [id number]
[2025-08-03 10:11] VITALS: BP 108/76; PULSE 92; RESP 22; TEMP 36.6; O2SAT 92
--- NOTE | 2025-08-03 10:16 | W.ANESPOSTOP ---
Postoperative Evaluation Date, Time and Location Date Performed: 08/03/25 Time Performed: 10:16 Patient Location: Day Surgery Unit Vital Signs Most Recent Imported Vital Signs: Most Recent Vital Signs Temp Pulse Resp BP Pulse Ox 36.3 C L 89 20 135/83 96 08/03/25 08:45 08/03/25 08:45 08/03/25 08:45 08/03/25 08:45 08/03/25 08:45 Pain Score Most Recent Pain Score: Most Recent Pain Score Pain Level 0 08/03/25 08:45 Assessment Mental Status: Awake (Alert & Oriented to Patient Baseline) Airway and Respiratory Function: Patent airway with normal (patient baseline) respiratory exam Cardiovascular Function: Hemodynamically Stable Hydration Status: Adequately Hydrated Nausea & Vomiting: No Nausea or Vomiting Pain: Pt. Denies Any Pain Peripheral Nerve Block: Patient did not receive a nerve block Postoperative Comments:: VERY active cough. Heavy secretions. Noam Mata, [employer]
[2025-08-03 10:47] VITALS: BP 125/83; PULSE 75; RESP 20; TEMP 36.6; O2SAT 95
== END 2025-08-03 11:06 | disposition home or self-care (01) ==
LOC: SUR 08:05
PROVIDERS: PCP Nurse Practitioner Family; Visit Provider Surgery
PROC: (CPT 45380; principal; 2025-08-03 09:45)
DX: K22.70 Barrett's esophagus without dysplasia (principal); R10.9 Unspecified abdominal pain; K44.9 Diaphragmatic hernia without obstruction or gangrene; K57.30 Diverticulosis of large intestine without perforation or abscess without bleeding; K22.89 Other specified disease of esophagus
CPT/HCPCS: 45380; 43239; 88305; J2003; J2704

== ENCOUNTER → 2025-09-20 10:26 | Outpatient (CLI) | payer MEDICAID, SELFPAY ==
--- NOTE | 2025-09-20 | DI.RAD_ITS ---
Exam(s) RF UPPER GI SERIES SINGLE EXAM: RF UPPER GI SERIES SINGLE CLINICAL HISTORY: HIATAL HERNIA K44.9 W/LUQ PAIN ? DYSMOTILITY ? PEH TECHNIQUE: 2D and realtime digital imaging was performed. CONTRAST MATERIAL: Oral barium Oral water soluble contrast was administered. Single and air contrast technique used. COMPARISON: No exams were available for comparison FINDINGS: ESOPHAGUS: Swallowing mechanism appears intact and there was no aspiration nor significant vallecular residue. No obvious hypertense upper esophageal sphincter and no evidence of Zenker's diverticulum. There are no fixed lesions nor strictures evident in the esophagus. No achalasia. No tertiary waves. There is no prominent reflux demonstrated during this examination. There is a small inconsistent sliding type hiatal hernia which was only demonstrated when gas producing crystals were administered to the patient. The mucosal pattern at this level appears within normal limits. STOMACH: Small sliding-type hiatal hernia, as described above. The remainder of the stomach appears unremarkable. No ulcer craters nor fixed lesions. DUODENUM: Duodenal C-loop exhibits normal mucosal pattern. No ulcer craters. No thickened folds. No diverticuli. Opacified small bowel loops reveal no mucosal pattern and no evidence of malrotation nor bowel obstruction. IMPRESSION: There is a small inconsistent sliding-type hiatal hernia. No other findings in the esophagus, stomach, and duodenum. RADIATION DOSE DELIVERED: oj Kaminski=82.6 mGy
[2025-09-20] MEDS: Simethicone/Sod Bicarb/Cit Ac, 4 gram PACKET 1 PACKET PO (12:13)
[2025-09-20] MEDS: Barium Sulfate 98% W/W 140 ML BTL PO (12:14)
[2025-09-20] MEDS: Barium Sulfate 60% W/V 355 ML BTL PO (12:14)
== END ==
LOC: DI 10:26
PROVIDERS: PCP Nurse Practitioner Family; Visit Provider Surgery
DX: K44.9 Diaphragmatic hernia without obstruction or gangrene (principal)
CPT/HCPCS: 74240; J3490